=== PATIENT | female | born 1975 | race American Indian/Alaskan Native ===

== ENCOUNTER 2017-03-24 06:31 | Emergency (ER) | payer OTHER ==
[2017-03-24 06:32] VITALS: BMI 27.5
[2017-03-24 06:40] VITALS: TEMP 97.9; O2SAT 99
--- NOTE | 2017-03-24 06:48 | C.PDOC ---
History Of Present Illness 41 y/o F c no PMHx p/w L foot pain since this morning. Patient was running to her car when she heard a pop and now has pain in the L medial heel radiating to the medial foot. She denies any twisting injuries. She states she now can not bear weight on the foot. She denies numbness or fall. Time Seen by Provider: 03/24/17 06:44 Chief Complaint (Nursing): Lower Extremity Problem/Injury Past Medical History Vital Signs: Last Vital Signs Temp 97.9 F 03/24/17 06:36 Pulse 107 H 03/24/17 06:36 Resp 20 03/24/17 06:36 BP 155/111 H 03/24/17 06:36 Pulse Ox 99 03/24/17 06:48 - Medical History PMH: HTN Family History: States: No Known Family Hx - Social History Hx Tobacco Use: No Hx Alcohol Use: No Hx Substance Use: No - Immunization History Hx Tetanus Toxoid Vaccination: No Hx Influenza Vaccination: No Hx Pneumococcal Vaccination: No Review Of Systems Except As Marked, All Systems Reviewed And Found Negative. Constitutional: Negative for: Fever Cardiovascular: Negative for: Chest Pain Physical Exam - Physical Exam Appears: No Acute Distress Skin: No Rash, No Ecchymosis Head: Atraumatic, Normacephalic Eye(s): bilateral: EOMI Oral Mucosa: Moist Respiratory: No Accessory Muscle Use Extremity: Tenderness (L medial heel), Swelling (L foot) Pulses: Left Dorsalis Pedis: Normal Neurological/Psych: Normal Motor (L foot), Normal Sensation (L foot) ED Course And Treatment O2 Sat by Pulse Oximetry: 99 Medical Decision Making Medical Decision Making: Patient declined analgesia. XR foot ordered. No tenderness of ankle or tib/fib. XR no acute fracture or dislocation as read by me. JOSÉ MIGUEL wrapped, crutches provided. Ortho follow up information provided. Disposition - Disposition Referrals: Suman Avery III, MD [Staff Provider] - Disposition: HOME/ ROUTINE Disposition Time: 07:07 Condition: STABLE Prescriptions: Acetaminophen [Tylenol 325mg tab] 2 tab PO Q4H #30 tab Instructions: Foot Sprain (ED) - Clinical Impression Clinical Impression: Foot pain
[2017-03-24 07:21] VITALS: BP 167/102; PULSE 94; RESP 16
--- NOTE | 2017-03-24 16:14 | RAD ---
Left foot three views History: Pain. Comparison: None available. Findings: Moderate hallux valgus deformity. No evidence for acute displaced fracture or dislocation. Impression: Negative acute. If pain persists, consider MRI.
== END 2017-03-24 07:43 | disposition home or self-care (01) ==
LOC: C.ER 06:31
DX: M79.672 Pain in left foot (principal)

== ENCOUNTER 2017-05-15 19:38 | Inpatient (IN) | payer OTHER ==
[2017-05-15 19:38] VITALS: BMI 27.5
[2017-05-15 20:05] LABS: BASO # 0.1 K/uL (0.0-0.2); BASO % 1.2 % (0.0-2.0); EOS # 0.1 K/uL (0.0-0.7); EOS % 0.6 % (0.0-4.0); HEMATOCRIT 38.2 % (34.0-47.0); LYMPH # 2.9 K/uL (1.0-4.3); LYMPH % 29.2 % (20.0-40.0); MEAN CORPUSCULAR HEMOGLOBIN 25.4 pg (27.0-31.0); MEAN CORPUSCULAR HGB CONC 32.8 g/dL (33.0-37.0); MEAN PLATELET VOLUME 8.5 fL (7.2-11.7); MONO % 10.1 % (0.0-10.0); RED CELL DISTRIBUTION WIDTH 13.5 % (11.5-14.5); WHITE BLOOD COUNT 10.1 K/uL (4.8-10.8)
--- NOTE | 2017-05-15 20:05 | C.PDOC ---
History Of Present Illness 41 year old female who presents to the ER with a complaint of sudden onset of palpitations while at work. Patient has a Hx of similar symptoms but has not seen a doctor for it. Denies chest pain or SOB. Chief Complaint (Nursing): Palpitations History Per: Patient History/Exam Limitations: no limitations Onset/Duration Of Symptoms: Hrs, Sudden Onset Current Symptoms Are (Timing): Still Present Associated Symptoms: denies: Chest Pain, Dyspnea, Dizziness, Blurred Vision, Focal Weakness, Headache Quality Of Symptoms: Rapid Heart Rate, Irregular Heart Rate Severity: None Exacerbating Factor(s): Pos: None Recent travel outside of the [place]: No Past Medical History Reviewed: Historical Data, Nursing Documentation, Vital Signs Vital Signs: Last Vital Signs Temp 97.9 F 05/15/17 19:40 Pulse 149 H 05/15/17 20:50 Resp 22 05/15/17 20:50 BP 134/80 05/15/17 20:50 Pulse Ox 100 05/15/17 20:50 - Medical History PMH: HTN Surgical History: No Surg Hx Family History: States: Unknown Family Hx - Social History Hx Tobacco Use: No Hx Alcohol Use: No Hx Substance Use: No - Immunization History Hx Tetanus Toxoid Vaccination: No Hx Influenza Vaccination: No Hx Pneumococcal Vaccination: No Review Of Systems Constitutional: Negative for: Fever, Chills Cardiovascular: Positive for: Palpitations. Negative for: Chest Pain Respiratory: Negative for: Cough, Shortness of Breath Gastrointestinal: Negative for: Nausea, Vomiting Musculoskeletal: Negative for: Neck Pain, Shoulder Pain, Arm Pain Physical Exam - Physical Exam Appears: Non-toxic Skin: Normal Color, Warm, Dry Head: Atraumatic, Normacephalic Oral Mucosa: Moist Neck: Normal, Supple Chest: Symmetrical, No Tenderness Cardiovascular: Rhythm Irregular (Tachycardic) Respiratory: Normal Breath Sounds, No Rales, No Rhonchi, No Wheezing Gastrointestinal/Abdominal: Soft, No Tenderness Extremity: Normal ROM (x4), No Pedal Edema Neurological/Psych: Oriented x3, Normal Speech, Normal Cognition, Other (No focal deficits) ED Course And Treatment - Laboratory Results Result Diagrams: 05/15/17 20:01 05/15/17 20:01 ECG: Interpreted By Me, Viewed By Me ECG Rhythm: Atrial Fibrillation ECG Interpretation: Abnormal Interpretation Of ECG: atrial fibrillation with rapid ventricular response Rate From EC O2 Sat by Pulse Oximetry: 98 (Room air) Pulse Ox Interpretation: Normal - Radiology CXR: Interpreted by Me CXR Interpretation: Yes: No Acute Disease. No: Infiltrates, Cardiomegaly Progress Note: EKG, blood work, and CXR ordered. Cardizem and verapamil administered. Disposition Discussed With : Cesar Pollock Doctor Will See Patient In The: Hospital Counseled Patient/Family Regarding: Diagnosis - Disposition Disposition: HOSPITALIZED Disposition Time: 22:25 Condition: STABLE Forms: [employer] (Lao) - Clinical Impression Clinical Impression: Atrial arrhythmia, Hyperthyroidism - Scribe Statement The provider has reviewed the documentation as recorded by the Scribe Gamaliel Nye All medical record entries made by the Scribe were at my direction and personally dictated by me. I have reviewed the chart and agree that the record accurately reflects my personal performance of the history, physical exam, medical decision making, and the department course for this patient. I have also personally directed, reviewed, and agree with the discharge instructions and disposition.
[2017-05-15 20:13] LABS: CHLORIDE 103 mmol/L (98-107); SODIUM 140 mmol/L (132-148)
[2017-05-15 20:15] LABS: GFR AFRICAN-AMERICAN > 60; POTASSIUM 4.5 mmol/L (3.6-5.2)
[2017-05-15 20:16] LABS: ALB/GLOB RATIO 1.1 (1.0-2.1); ALKALINE PHOSPHATASE 135 U/L (38-126); ALT/SGPT 50 U/L (9-52); AST/SGOT 60 U/L (14-36); BILIRUBIN,TOTAL 1.1 mg/dL (0.2-1.3); BLOOD UREA NITROGEN 12 mg/dL (7-17); CARBON DIOXIDE 25 mmol/L (22-30); GLUCOSE,RANDOM 81 mg/dL (65-105); TOTAL PROTEIN 7.6 g/dL (6.3-8.3)
[2017-05-15 20:17] LABS: CALCIUM 9.9 mg/dl (8.6-10.4)
[2017-05-15 20:33] LABS: T4 > 24.9 ug/dL (5.5-11.0)
[2017-05-15 20:35] LABS: MEAN CELL VOLUME 77.4 fL (81.0-99.0)
[2017-05-15] MEDS ORDERED: Strong Iodine Topical Sol. 5%-10% PO ONE ×2 (21:45→22:00)
[2017-05-15] MEDS ORDERED: Sodium Chloride 0.9% 1,000 ML IV ONE (21:51)
[2017-05-15] MEDS ORDERED: Dexamethasone 4 mg/1 ml IVP STA (21:52)
[2017-05-15] MEDS ORDERED: Propranolol 1 mg/mL Inj IVP ONE (22:15)
[2017-05-15] MEDS ORDERED: Propranolol 1 mg/mL Inj ONE (22:25)
[2017-05-15] MEDS ORDERED: Dexamethasone 4 mg/1 ml ONE (22:25)
--- NOTE | 2017-05-15 22:46 | CP.PCM.CON ---
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 Patient has a Hx of similar symptoms but has not seen a doctor for it. Denies chest pain , dizziness or SOB..Patient currently on Cardizem drip with HR between 130-160 with no c/o palpitations ER labs reveal elevated AST,alk phos,T4,T3 and low TSH.h/o recent weight loss.Denies diaphoresis,loose bowel movemts or heat/cold intolerence. Review of Systems - Review of Systems Systems not reviewed;Unavailable: Unstable Vital Signs - Constitutional Constitutional: Weight Loss. absent: Anorexia, Chills, Fatigue, Fever, Headache , Malaise, Night Sweats - EENT Eyes: absent: Blurred Vision, Change in Vision, Exophthalmos Ears: absent: Decreased Hearing, Dizziness Nose/Mouth/Throat: absent: Nasal Congestion, Hoarsness - Breasts Breasts: absent: Mass, Skin Changes - Cardiovascular Cardiovascular: Palpitations. absent: Chest Pain, Chest Pain at Rest, Chest Pain with Activity, Claudication, Diaphoresis, Dyspnea on Exertion, Edema - Respiratory Respiratory: absent: Cough, Dyspnea - Gastrointestinal Gastrointestinal: absent: Abdominal Pain, Change in Bowel Habits, Change in Stool Character, Nausea, Vomiting - Genitourinary Genitourinary: absent: Change in Urinary Stream, Urinary Frequency - Reproductive: Female Reproductive:Female: Normal Menses - Musculoskeletal Musculoskeletal: absent: Joint Swelling - Integumentary Integumentary: absent: Acne, Alopecia - Neurological Neurological: absent: Dizziness - Endocrine Endocrine: absent: Cold Intolorance, Heat Intolorance, Polydipsia, Polyphagia - Hematologic/Lymphatic Hematologic: absent: Easy Bleeding, Easy Bruising Past Patient History - Infectious Disease Hx of Infectious Diseases: None - Past Medical History & Family History Past Medical History?: Yes Pertinent Family History: mother in her 70's recently diagnosed with thyroid disease and Sx recommended - Past Social History Smoking Status: Never Smoked Chewing Tobacco Use: No Cigar Use: No Occupation: works in [employer] Alcohol: Social Drugs: Denies - CARDIAC Hx Hypertension: Yes - PSYCHIATRIC Hx Substance Use: No - SURGICAL HISTORY Hx Surgeries: No - ANESTHESIA Hx Anesthesia: No Meds Allergies/Adverse Reactions: Allergies Allergy/AdvReac Type Severity Reaction Status Date / Time No Known Allergies Allergy Verified 05/15/17 20:04 - Medications Medications: Current Medications Diltiazem HCl 125 mg/ Sodium (Chloride) 125 mls @ 5 mls/hr IV .Q24H SALAZAR PRN Reason: 5 MG/HR Last Admin: 05/15/17 20:37 Dose: 5 mls/hr Diltiazem HCl 125 mg/ Sodium (Chloride) 125 mls @ 10 mls/hr IV .[id number] SALAZAR; 10 MG/HR PRN Reason: Protocol Last Admin: 05/15/17 21:33 Dose: 10 mls/hr Sodium Chloride (Sodium Chloride 0.9%) 1,000 mls @ 1,000 mls/hr IV .Q1H ONE Stop: 05/15/17 22:50 Physical Exam - Constitutional Appears: Non-toxic, No Acute Distress - Head Exam Head Exam: ATRAUMATIC, NORMAL INSPECTION, NORMOCEPHALIC - Eye Exam Eye Exam: EOMI, Normal appearance, PERRL. absent: Conjunctival injection Pupil Exam: NORMAL ACCOMODATION - ENT Exam ENT Exam: Mucous Membranes Moist, Normal Exam - Neck Exam Neck exam: Positive for: Normal Inspection. Negative for: Lymphadenopathy - Respiratory Exam Respiratory Exam: Clear to Auscultation Bilateral, NORMAL BREATHING PATTERN - Cardiovascular Exam Cardiovascular Exam: Tachycardia, Irregular Rhythm. absent: JVD - GI/Abdominal Exam GI & Abdominal Exam: Normal Bowel Sounds, Soft. absent: Organomegaly, Tenderness - Extremities Exam Extremities exam: Positive for: normal capillary refill, normal inspection. Negative for: calf tenderness, pedal edema, tenderness - Back Exam Back exam: NORMAL INSPECTION - Neurological Exam Neurological exam: Alert, Oriented x3 - Psychiatric Exam Psychiatric exam: Normal Affect - Skin Skin Exam: Normal Color Results - Vital Signs Recent Vital Signs: Last Vital Signs Temp 97.9 F 05/15/17 19:40 Pulse 149 H 05/15/17 20:50 Resp 22 05/15/17 20:50 BP 134/80 05/15/17 20:50 Pulse Ox 98 05/15/17 22:26 - Labs Result Diagrams: 05/15/17 20:01 05/15/17 20:01 Labs: Laboratory Results - last 24 hr 05/15/17 05/15/17 05/15/17 20:01 20:01 20:01 WBC 10.1 RBC 4.93 Hgb 12.5 Hct 38.2 MCV 77.4 L D MCH 25.4 L MCHC 32.8 L RDW 13.5 Plt Count 287 MPV 8.5 Neut % (Auto) 58.9 Lymph % (Auto) 29.2 [place] % (Auto) 10.1 H Eos % (Auto) 0.6 Baso % (Auto) 1.2 Neut # 5.9 Lymph # 2.9 [place] # 1.0 H Eos # 0.1 Baso # 0.1 PT 11.0 INR 1.0 APTT 35 H D-Dimer, Quantitative 236 Sodium 140 Potassium 4.5 Chloride 103 Carbon Dioxide 25 Anion Gap 17 BUN 12 Creatinine 0.5 L Est GFR ( Amer) > 60 Est GFR (Non-Af Amer) > 60 Random Glucose 81 Calcium 9.9 Total Bilirubin 1.1 AST 60 H D ALT 50 Alkaline Phosphatase 135 H D Troponin I 0.0270 Total Protein 7.6 Albumin 3.9 Globulin 3.7 Albumin/Globulin Ratio 1.1 Thyroxine (T4) > 24.9 H Total T3 8.28 H TSH 3rd Generation 05/15/17 21:53 WBC RBC Hgb Hct MCV MCH MCHC RDW Plt Count MPV Neut % (Auto) Lymph % (Auto) [place] % (Auto) Eos % (Auto) Baso % (Auto) Neut # Lymph # [place] # Eos # Baso # PT INR APTT D-Dimer, Quantitative Sodium Potassium Chloride Carbon Dioxide Anion Gap BUN Creatinine Est GFR ( Amer) Est GFR (Non-Af Amer) Random Glucose Calcium Total Bilirubin AST ALT Alkaline Phosphatase Troponin I Total Protein Albumin Globulin Albumin/Globulin Ratio Thyroxine (T4) Total T3 TSH 3rd Generation < 0.02 L - EKG Data EKG Interpreted by: Myself Rate: Tachycardia - Impressions Impression: Atrial fibrillation with ventricular rate of 193/min Assessment & Plan - Assessment and Plan (Free Text) Assessment: 1.Atrial Fibrillation with rapid Ventricular rate on Cardizem drip 2.Thyrotoxicosis -new received PTU,propranalol,potassium iodide and dexamethasone in ER continue propranalol and PTU 3.HTN-f/u BP 4.elevated AST-rpt labs Discussed with PMD
[2017-05-16 06:51] LABS: BASO % 0.5 % (0.0-2.0); HEMATOCRIT 35.3 % (34.0-47.0); LYMPH # 0.8 K/uL (1.0-4.3); MEAN CELL VOLUME 78.1 fL (81.0-99.0); MEAN CORPUSCULAR HEMOGLOBIN 25.7 pg (27.0-31.0); MEAN CORPUSCULAR HGB CONC 32.9 g/dL (33.0-37.0); MONO # 0.1 K/uL (0.0-0.8); MONO % 2.1 % (0.0-10.0); RED CELL DISTRIBUTION WIDTH 13.4 % (11.5-14.5); WHITE BLOOD COUNT 5.5 K/uL (4.8-10.8)
[2017-05-16 07:07] LABS: ALB/GLOB RATIO 1.1 (1.0-2.1); ALKALINE PHOSPHATASE 100 U/L (38-126); ALT/SGPT 48 U/L (9-52); AST/SGOT 43 U/L (14-36); BILIRUBIN,TOTAL 0.8 mg/dL (0.2-1.3); BLOOD UREA NITROGEN 10 mg/dL (7-17); CALCIUM 9.4 mg/dl (8.6-10.4); CARBON DIOXIDE 20 mmol/L (22-30); CHLORIDE 107 mmol/L (98-107); GFR AFRICAN-AMERICAN > 60; GLUCOSE,RANDOM 105 mg/dL (65-105); MAGNESIUM 1.8 mg/dL (1.6-2.3); PHOSPHOROUS 4.3 mg/dL (2.5-4.5); POTASSIUM 4.3 mmol/L (3.6-5.2); SODIUM 136 mmol/L (132-148); TOTAL PROTEIN 5.7 g/dL (6.3-8.3)
[2017-05-16 07:36] LABS: THYROID STIMULATING HORMONE < 0.02 mIU/L (0.46-4.68)
[2017-05-16] MEDS: Pantoprazole 40 mg EC Tab PO SCH (10:07)
[2017-05-16] MEDS: Enoxaparin 30 mg Syringe SC SCH (10:08)
--- NOTE | 2017-05-16 10:15 | RAD ---
HISTORY: palpitation COMPARISON: Chest x-ray performed 02/03/16 TECHNIQUE: Chest, one view. FINDINGS: External cardiac monitoring leads. LUNGS: No focal consolidation. Please note that chest x-ray has limited sensitivity for the detection of pulmonary masses. PLEURA: No significant pleural effusion identified. No definite pneumothorax . CARDIOVASCULAR: The cardiomediastinal silhouette appears within normal limits of size. OSSEOUS STRUCTURES: No acute osseous abnormality identified. VISUALIZED UPPER ABDOMEN: Unremarkable. OTHER FINDINGS: None. IMPRESSION: No focal consolidation, significant pleural effusion, or definite pneumothorax identified.
--- NOTE | 2017-05-16 10:25 | CP.PCM.CON ---
<SAVANNA FELTON - Last Filed: 05/16/17 16:40> History of Present Illness - History of Present Illness History of Present Illness: Savanna Felton, PGY1, Consult Note for Dr. Dotson: CC: palpitations HPI: 41F with PMH HTN, presented for sudden onset of palpitations while at work. Pt c/o mild tremors at times, weight loss of 10 lbs within a few months and increased appetite. Otherwise, denies heat intolerance, cp/pleuritic cp, diaphoresis, diarrhea, abdominal pain, dysuria. Pt has been experiencing palpitations for a few months now, mostly attributing to her HTN. She has not been to her PMD for it. She last visit her PMD Dr Sohail Matthew, 1 year ago and reports normal physical exam and lab work. In ED, pt tachycardic at HR 206, BP 120/80, neg D Dimer, trop negx2, AST 60, ALT 50, low tsh <0.02, fT4 >24.9, fT3 8.28, EKG shows hr 193, afib with rvr; received propranolol 1 mg IVPx1, Verapamil 10 mg IVx1->5mg IVPx2, lugols soln 5mg POx2, PTU 100 mg POx1 and dexamethasone. Pt was started on Cardizem drip, currently weaned off, in NSR Hr 84-100, and maintained on Propranolol 10 mg PO TID and methimazole per Endo. Currently undergoing echocardiogram to r/o structural heart disease. Cardiology consulted for management of afib with RVR. PMH: htn, left plantar fascia full tear (few months ago - required waffle boots) PSH: denies ALl: NKA FH: Mother, dx with hyperthyroidism in her 60's, likely undergoing thyroidectomy soon? DM, HTN, prostate cancer denies thyroid cancer in family SH: Denies tobacco or drug use. Drinks beer/vodka socially every few weeks. PMD: Dr. Sohail Matthew ([place], [place]) Review of Systems - Constitutional Constitutional: Increased Appetite, Weight Loss. absent: Chills, Fever, Lethargy, Night Sweats, Weakness - EENT Eyes: absent: Blurred Vision - Cardiovascular Cardiovascular: Palpitations, Rapid Heart Rate. absent: Chest Pain, Dyspnea, Edema, Lightheadedness, Pedal Edema, Radiating Pain, Syncope - Respiratory Respiratory: absent: Cough, Wheezing - Gastrointestinal Gastrointestinal: absent: Abdominal Pain, Diarrhea, Loose Stools, Vomiting - Genitourinary Genitourinary: absent: Urinary Incontinence, Urinary Frequency - Integumentary Integumentary: absent: Pruritus, Rash - Neurological Neurological: absent: Headaches, Syncope, Weakness - Endocrine Endocrine: Palpitations. absent: Excessive Sweating, Fatigue, Heat Intolorance - Hematologic/Lymphatic Hematologic: absent: Easy Bruising Past Patient History - Infectious Disease Hx of Infectious Diseases: None - Past Medical History & Family History Past Medical History?: Yes - Past Social History Smoking Status: Never Smoked - CARDIAC Hx Cardiac Disorders: Yes Hx Hypertension: Yes - PULMONARY Hx Respiratory Disorders: No - NEUROLOGICAL Hx Neurological Disorder: No - HEENT Hx HEENT Problems: No - RENAL Hx Chronic Kidney Disease: No - ENDOCRINE/METABOLIC Hx Endocrine Disorders: Yes Hx Hyperthyroidism: Yes - HEMATOLOGICAL/ONCOLOGICAL Hx Blood Disorders: No - INTEGUMENTARY Hx Dermatological Problems: No - MUSCULOSKELETAL/RHEUMATOLOGICAL Hx Musculoskeletal Disorders: No - GASTROINTESTINAL Hx Gastrointestinal Disorders: No - GENITOURINARY/GYNECOLOGICAL Hx Genitourinary Disorders: No - PSYCHIATRIC Hx Psychophysiologic Disorder: No Hx Substance Use: No - SURGICAL HISTORY Hx Surgeries: No - ANESTHESIA Hx Anesthesia: No Meds Allergies/Adverse Reactions: Allergies Allergy/AdvReac Type Severity Reaction Status Date / Time No Known Allergies Allergy Verified 05/15/17 20:04 - Medications Medications: Current Medications Enoxaparin Sodium (Lovenox) 30 mg SC DAILY [facility] Diltiazem HCl 125 mg/ Sodium (Chloride) 125 mls @ 10 mls/hr IV .[id number] SALAZAR; 10 MG/HR PRN Reason: Protocol Last Admin: 05/15/17 21:33 Dose: 10 mls/hr Methimazole (Tapazole) 20 mg PO TID [facility] Pantoprazole Sodium (Protonix Ec Tab) 40 mg PO DAILY [facility] Propranolol HCl (Inderal) 10 mg PO TID [facility] Last Admin: 05/16/17 01:27 Dose: 10 mg Physical Exam - Constitutional Appears: No Acute Distress - Head Exam Head Exam: ATRAUMATIC, NORMOCEPHALIC - Eye Exam Eye Exam: PERRL - ENT Exam ENT Exam: Mucous Membranes Moist - Respiratory Exam Respiratory Exam: Clear to Auscultation Bilateral - Cardiovascular Exam Cardiovascular Exam: RRR, +S1, +S2. absent: Systolic Murmur - GI/Abdominal Exam GI & Abdominal Exam: Normal Bowel Sounds, Soft. absent: Distended - Extremities Exam Extremities exam: Negative for: calf tenderness, pedal edema - Neurological Exam Neurological exam: Alert, Oriented x3 - Psychiatric Exam Psychiatric exam: Normal Mood - Skin Skin Exam: Dry, Intact, Warm Results - Vital Signs Recent Vital Signs: Last Vital Signs Temp 97.9 F 05/16/17 08:00 Pulse 95 H 05/16/17 09:30 Resp 21 05/16/17 09:30 BP 127/70 05/16/17 09:26 Pulse Ox 100 05/16/17 09:30 - Labs Result Diagrams: 05/16/17 06:44 05/16/17 06:44 Labs: Laboratory Results - last 24 hr 05/15/17 05/16/17 05/16/17 23:27 06:44 06:44 WBC 5.5 RBC 4.52 Hgb 11.6 Hct 35.3 MCV 78.1 L MCH 25.7 L MCHC 32.9 L RDW 13.4 Plt Count 221 MPV 9.0 Neut % (Auto) 82.4 H Lymph % (Auto) 15.0 L [place] % (Auto) 2.1 Eos % (Auto) 0.0 Baso % (Auto) 0.5 Neut # 4.5 Lymph # 0.8 L [place] # 0.1 Eos # 0.0 Baso # 0.0 Sodium 136 Potassium 4.3 Chloride 107 Carbon Dioxide 20 L Anion Gap 13 BUN 10 Creatinine 0.4 L Est GFR ( Amer) > 60 Est GFR (Non-Af Amer) > 60 Random Glucose 105 Calcium 9.4 Phosphorus 4.3 Magnesium 1.8 Total Bilirubin 0.8 AST 43 H D ALT 48 Alkaline Phosphatase 100 Troponin I < 0.0120 Total Protein 5.7 L Albumin 3.0 L D Globulin 2.8 Albumin/Globulin Ratio 1.1 TSH 3rd Generation < 0.02 L Urine HCG, Qual Negative Assessment & Plan - Assessment and Plan (Free Text) Assessment: 41F with PMH HTN, admitted for afib with RVR 2/2 likely thyrotoxic crisis. Cardiology consulted for management. Off cardizem drip, in NSR, on propranolol and methimazole, echocardiogram reveals normal EF and no structural/valvular heart disease, f/u thyroid US and further treatment of hyperthyroidism ( radioactive iodine vs thyroidectomy?) Plan: Afib with RVR 2/2 likely thyrotoxic crisis: - Pt initially p/w palpitations, weight loss, tremors. Denied cp, sob, diaphoresis, heat intolerance, n/v/d, abdominal pain. - D dimer neg, trop negx2, EKG shows Hr 193/min, afib with RVR - Received Propranolol 1 mg IVPx1, Verapamil 10 mg IVP x1-> 5 mg IVx2, PTU 100g POx1, Lugols soln 5mgx2 in ED - Started on Cardizem drip, currently weaned off, pt converted to NSR at 8 AM today, HR 80-100's. - Currently on Propranolol 10 mg PO TID, and Methimazole 20 mg PO tid, please use cardizem drip if required. - Echo cardiogram 05/16 shows normal EF and no structural/vavular disease. - Mild transminities. cont to monitor. - f/u thyroid US Discussed with Dr. Dotson. Savanna Felton, PGY1 - Date & Time Date: 05/16/17 Time: 13:00 <Will Dotson - Last Filed: 05/16/17 20:41> Meds - Medications Medications: Current Medications Enoxaparin Sodium (Lovenox) 30 mg SC DAILY [facility] Last Admin: 05/16/17 10:08 Dose: 30 mg Diltiazem HCl 125 mg/ Sodium (Chloride) 125 mls @ 10 mls/hr IV .[id number] SALAZAR; 10 MG/HR PRN Reason: Protocol Last Admin: 05/16/17 10:09 Dose: Not Given Methimazole (Tapazole) 20 mg PO TID [facility] Last Admin: 05/16/17 17:58 Dose: 20 mg Pantoprazole Sodium (Protonix Ec Tab) 40 mg PO DAILY [facility] Last Admin: 05/16/17 10:07 Dose: 40 mg Pneumococcal Polyvalent Vaccine (Pneumovax 23 Vaccine) 0.5 ml IM .ONCE ONE Stop: 05/17/17 15:39 Propranolol HCl (Inderal) 10 mg PO TID [facility] Last Admin: 05/16/17 17:58 Dose: 10 mg Results - Vital Signs Recent Vital Signs: Last Vital Signs Temp 98.0 F 05/16/17 16:00 Pulse 102 H 05/16/17 19:24 Resp 26 H 05/16/17 19:24 BP 117/69 05/16/17 19:24 Pulse Ox 99 05/16/17 19:24 - Labs Result Diagrams: 05/16/17 06:44 05/16/17 06:44 Labs: Laboratory Results - last 24 hr 05/15/17 05/16/17 05/16/17 23:27 06:44 06:44 WBC 5.5 RBC 4.52 Hgb 11.6 Hct 35.3 MCV 78.1 L MCH 25.7 L MCHC 32.9 L RDW 13.4 Plt Count 221 MPV 9.0 Neut % (Auto) 82.4 H Lymph % (Auto) 15.0 L [place] % (Auto) 2.1 Eos % (Auto) 0.0 Baso % (Auto) 0.5 Neut # 4.5 Lymph # 0.8 L [place] # 0.1 Eos # 0.0 Baso # 0.0 Sodium 136 Potassium 4.3 Chloride 107 Carbon Dioxide 20 L Anion Gap 13 BUN 10 Creatinine 0.4 L Est GFR ( Amer) > 60 Est GFR (Non-Af Amer) > 60 Random Glucose 105 Calcium 9.4 Phosphorus 4.3 Magnesium 1.8 Total Bilirubin 0.8 AST 43 H D ALT 48 Alkaline Phosphatase 100 Troponin I < 0.0120 Total Protein 5.7 L Albumin 3.0 L D Globulin 2.8 Albumin/Globulin Ratio 1.1 TSH 3rd Generation < 0.02 L Urine HCG, Qual Negative Assessment & Plan - Assessment and Plan (Free Text) Plan: Patient seen and evaluated D/W patient and family at bedside Plan of care as above
--- NOTE | 2017-05-16 11:40 | CARD ---
APPROVED REPORT EKG Measurement Heart [id number] <Conclusion> Atrial fibrillation with rapid ventricular response ST & T wave abnormality, consider inferior ischemia Abnormal ECG
--- NOTE | 2017-05-16 12:07 | CARD ---
APPROVED REPORT EXAM: Two-dimensional and M-mode echocardiogram with Doppler and color Doppler. Other Information Quality : GoodRhythm : NSR INDICATION Atrial Fibrillation Palpitations RISK FACTORS Hypertension 2D DIMENSIONS IVSd0.9 (0.7-1.1cm)LVDd4.1 (3.9-5.9cm) PWd1.0 (0.7-1.1cm)LVDs2.2 (2.5-4.0cm) FS (%) 46.8 %LVEF (%)78.6 (>50%) M-Mode DIMENSIONS RVDd2.47 (2.1-3.2cm)Left Atrium (MM)3.12 (2.5-4.0cm) IVSd0.65 (0.7-1.1cm)Aortic Root3.45 (2.2-3.7cm) LVDd4.78 (4.0-5.6cm)Aortic Cusp Exc.2.41 (1.5-2.0cm) PWd0.72 (0.7-1.1cm)FS (%) 50 % LVDs2.41 (2.0-3.8cm)LVEF (%)81 (>50%) Mitral Valve MV E Jpkhricu08.7cm/sMV A Oumokgzi42.3cm/sE/A ratio1.1 TDI E/Lateral E'0.0E/Medial E'0.0 Tricuspid Valve TR Peak [id number]/sTR Peak Gr.[id number] LEFT VENTRICLE The left ventricle is normal size. There is normal left ventricular wall thickness. Left ventricle systolic function is normal. The Ejection Fraction is 65-70%. There is normal LV segmental wall motion. The left ventricular diastolic function is normal. There is no ventricular septal defect visualized. RIGHT VENTRICLE The right ventricle is normal size. The right ventricular systolic function is normal. ATRIA The left atrium size is normal. The right atrium size is normal. The atrial septum is aneurysmal. With a dropout of the intra-atrial septum however no Doppler evidence of atrial septal defect AORTIC VALVE The aortic valve is tri-cuspid. The aortic valve is normal in structure. No aortic regurgitation is present. There is no aortic valvular stenosis. MITRAL VALVE The mitral valve is normal in structure. There is no evidence of mitral valve prolapse. There is no mitral valve regurgitation noted. TRICUSPID VALVE The tricuspid valve is normal in structure. There is trace tricuspid regurgitation. Right ventricular systolic pressure is estimated at 30-40 mmHg. There is mild pulmonary hypertension. PULMONIC VALVE The pulmonary valve is normal in structure. There is trace pulmonic valvular regurgitation. GREAT VESSELS The aortic root is normal in size. The IVC is normal in size and collapses >50% with inspiration. PERICARDIAL EFFUSION There is no pericardial effusion. <Conclusion> Left ventricle systolic function is normal. The Ejection Fraction is 65-70%. The left ventricular diastolic function is normal. The atrial septum is aneurysmal. With a dropout of the intra-atrial septum however no Doppler evidence of atrial septal defect There is mild pulmonary hypertension.
[2017-05-16] MEDS ORDERED: Pneumococcal 23-Valent Vaccine IM ONE (15:03)
--- NOTE | 2017-05-16 15:41 | CP.CCUPN ---
<Malina Rodrigues - Last Filed: 05/16/17 15:39> CCU Subjective - Physician Review Subjective (Free Text): Patient was seen and examined at bedside. Patient is feeling better, however, feels as though her heart rate is starting to increase again. Patient no longer feels dizzy, she only feels dizzy and short of breath when she has palpitations. Patient denies having chest pain, abdominal pain, vision changes, nausea, vomiting, headaches, and fevers. 05/16/17 15:39 CCU Objective - Vital Signs / Intake & Output Vital Signs (Last 4 hours): Vital Signs Temp Pulse Resp BP Pulse Ox 05/16/17 15:30 107 H 26 H 100 05/16/17 15:25 105 H 14 118/71 100 05/16/17 15:20 108 H 35 H 97 05/16/17 15:10 105 H 26 H 100 05/16/17 15:00 101 H 27 H 100 05/16/17 14:50 102 H 26 H 100 05/16/17 14:40 105 H 21 100 05/16/17 14:30 100 H 25 H 100 05/16/17 14:25 102 H 22 129/95 H 100 05/16/17 14:20 102 H 28 H 100 05/16/17 14:10 105 H 24 100 05/16/17 14:00 106 H 29 H 100 05/16/17 13:50 102 H 22 100 05/16/17 13:40 100 H 21 100 05/16/17 13:30 107 H 29 H 100 05/16/17 13:25 98 H 20 118/72 05/16/17 13:20 102 H 25 H 99 05/16/17 13:10 94 H 21 100 05/16/17 13:00 92 H 24 100 05/16/17 12:50 108 H 13 96 05/16/17 12:40 97 H 20 100 05/16/17 12:30 95 H 20 100 05/16/17 12:25 94 H 24 108/66 100 05/16/17 12:24 95 H 24 100 05/16/17 12:20 98 H 15 100 05/16/17 12:10 94 H 26 H 100 05/16/17 12:00 98.0 F 89 23 100 05/16/17 11:50 93 H 16 95 05/16/17 11:40 103 H 12 100 Intake and Output (Last 8hrs): Intake & Output 05/16/17 05/16/17 05/16/17 06:59 14:59 22:59 Intake Total 685 535 Output Total 775 200 Balance 685 -240 -200 Intake: Intake, IV Amount 685 535 Right Hand 85 35 Right Hand Y Port 600 500 Output: Urine 775 200 Urine, Voided 775 200 Other: # Voids Urine, Voided 1 0 1 - Physical Exam Head: Positive for: Atraumatic, Normocephalic Pupils: Positive for: PERRL Extroacular Muscles: Positive for: EOMI Conjunctiva: Positive for: Normal Mouth: Positive for: Moist Mucous Membranes Neck: Positive for: Normal Range of Motion, Other (enlarged and nodular thyroid. ) Respiratory/Chest: Positive for: Clear to Auscultation, Good Air Exchange. Negative for: Wheezes, Rales, Rhonchi Cardiovascular: Positive for: Normal S1, S2, Tachycardic Abdomen: Positive for: Normal Bowel Sounds. Negative for: Tenderness, Distention Upper Extremity: Positive for: Normal Inspection. Negative for: Edema Lower Extremity: Positive for: Normal Inspection. Negative for: Edema Skin: Positive for: Warm, Dry, Normal Color Psychiatric: Positive for: Alert, Oriented x 3, Normal Insight, Normal Concentration - Medications Active Medications: Active Medications Generic Name Dose Route Start Last Admin Trade Name Freq PRN Reason Stop Dose Admin Enoxaparin Sodium 30 mg 05/16/17 10:00 05/16/17 10:08 Lovenox SC 30 mg DAILY SALAZAR Administration Diltiazem HCl 125 mg/ Sodium 125 mls @ 10 mls/hr 05/15/17 21:30 05/16/17 10: 09 Chloride IV Not Given .[id number] SALAZAR Protocol 10 MG/HR Methimazole 20 mg 05/16/17 10:00 05/16/17 13:33 Tapazole PO 20 mg TID SALAZAR Administration Pantoprazole Sodium 40 mg 05/16/17 10:00 05/16/17 10:07 Protonix Ec Tab PO 40 mg DAILY SALAZAR Administration Pneumococcal Polyvalent Vaccine 0.5 ml 05/17/17 15:38 Pneumovax 23 Vaccine IM 05/17/17 15:39 .ONCE ONE Propranolol HCl 10 mg 05/16/17 01:15 05/16/17 13:33 Inderal PO 10 mg TID SALAZAR Administration - Patient Studies Lab Studies: Lab Studies 05/16/17 05/16/17 05/15/17 Range/Units 06:44 06:44 23:27 WBC 5.5 (4.8-10.8) K/uL RBC 4.52 (3.80-5.20) Mil/uL Hgb 11.6 (11.0-16.0) g/dL Hct 35.3 (34.0-47.0) % MCV 78.1 L (81.0-99.0) fL MCH 25.7 L (27.0-31.0) pg MCHC 32.9 L (33.0-37.0) g/dL RDW 13.4 (11.5-14.5) % Plt Count 221 (130-400) K/uL MPV 9.0 (7.2-11.7) fL Neut % (Auto) 82.4 H (50.0-75.0) % Lymph % (Auto) 15.0 L (20.0-40.0) % [place] % (Auto) 2.1 (0.0-10.0) % Eos % (Auto) 0.0 (0.0-4.0) % Baso % (Auto) 0.5 (0.0-2.0) % Neut # 4.5 (1.8-7.0) K/uL Lymph # 0.8 L (1.0-4.3) K/uL [place] # 0.1 (0.0-0.8) K/uL Eos # 0.0 (0.0-0.7) K/uL Baso # 0.0 (0.0-0.2) K/uL Sodium 136 (132-148) mmol/L Potassium 4.3 (3.6-5.2) mmol/L Chloride 107 (98-107) mmol/L Carbon Dioxide 20 L (22-30) mmol/L Anion Gap 13 (10-20) BUN 10 (7-17) mg/dL Creatinine 0.4 L (0.7-1.2) MG/DL Est GFR ( Amer) > 60 Est GFR (Non-Af Amer) > 60 Random Glucose 105 (65-105) mg/dL Calcium 9.4 (8.6-10.4) mg/dl Phosphorus 4.3 (2.5-4.5) mg/dL Magnesium 1.8 (1.6-2.3) mg/dL Total Bilirubin 0.8 (0.2-1.3) mg/dL AST 43 H D (14-36) U/L ALT 48 (9-52) U/L Alkaline Phosphatase 100 (38-126) U/L Troponin I < 0.0120 (0.00-0.120) ng/mL Total Protein 5.7 L (6.3-8.3) g/dL Albumin 3.0 L D (3.5-5.0) g/dL Globulin 2.8 (2.2-3.9) gm/dL Albumin/Globulin Ratio 1.1 (1.0-2.1) TSH 3rd Generation < 0.02 L (0.46-4.68) mIU/L Urine HCG, Qual Negative (NEGATIVE) Laboratory Results - last 24 hr 05/15/17 05/16/17 05/16/17 23:27 06:44 06:44 WBC 5.5 RBC 4.52 Hgb 11.6 Hct 35.3 MCV 78.1 L MCH 25.7 L MCHC 32.9 L RDW 13.4 Plt Count 221 MPV 9.0 Neut % (Auto) 82.4 H Lymph % (Auto) 15.0 L [place] % (Auto) 2.1 Eos % (Auto) 0.0 Baso % (Auto) 0.5 Neut # 4.5 Lymph # 0.8 L [place] # 0.1 Eos # 0.0 Baso # 0.0 Sodium 136 Potassium 4.3 Chloride 107 Carbon Dioxide 20 L Anion Gap 13 BUN 10 Creatinine 0.4 L Est GFR ( Amer) > 60 Est GFR (Non-Af Amer) > 60 Random Glucose 105 Calcium 9.4 Phosphorus 4.3 Magnesium 1.8 Total Bilirubin 0.8 AST 43 H D ALT 48 Alkaline Phosphatase 100 Troponin I < 0.0120 Total Protein 5.7 L Albumin 3.0 L D Globulin 2.8 Albumin/Globulin Ratio 1.1 TSH 3rd Generation < 0.02 L Urine HCG, Qual Negative EKG/Cardiology Studies: Cardiology / EKG Studies 05/16/17 08:00 ELECTROCARDIOGRAM Stat Comment: Mode Of Transportation: PORTABLE Reason For Exam: atrial fibrillation Review of Systems - Constitutional Constitutional: absent: Fever - EENT Eyes: absent: Change in Vision, Other Visual Disturbances Ears: absent: Dizziness - Cardiovascular Cardiovascular: Palpitations. absent: Chest Pain, Dyspnea, Lightheadedness - Respiratory Respiratory: absent: Cough, Dyspnea - Gastrointestinal Gastrointestinal: absent: Abdominal Pain, Constipation, Diarrhea, Nausea, Vomiting - Neurological Neurological: absent: Dizziness, Headaches - Endocrine Endocrine: Palpitations Critical Care Progress Note - Nutrition Nutrition: Nutrition Category Date Time Status Heart Healthy Diet [DIET] Diets 05/16/17 Lunch Active Assessment/Plan - Assessment and Plan (Free Text) Assessment: 41 year old female with history of HTN, presents to ED with sudden onset of palpitations. Patient has had these symptoms in past but has not seen a doctor for it. In the ER patient was found to have A-fib with rvr, low TSH, elevated T3 , T4, and AST. Patient was admitted to ICU for A-fib w/rvr and thyrotoxicosis. Neuro: alert, orientedx3 Pulm: no acute issues CV: Afib w/RVR - Continued Propanolol, Discontinued Cardizem drip - Caridology consulted- Dr Dotson, help appreciated - Hx of HTN: continue Endo: Thyrotoxicosis - Continue propanolol, methimazole - Hyperthyroidism-->TSH:<0.02 T3:8.28 T4: >24.9 - Thyroid U/S: f/u - Endocrinology consulted: Dr. Mancilla, help appreciated GI: elevated AST - F/U repeat labs - AST 60 at admission, repeat 43 Heme: no acute issues Renal: no acute issues ID: no acute issues Prophylaxis: - DVT: Lovenox - GI: Protonix <Hayes Quiles - Last Filed: 05/16/17 17:23> CCU Objective - Vital Signs / Intake & Output Vital Signs (Last 4 hours): Vital Signs Temp Pulse Resp BP Pulse Ox 05/16/17 16:30 110 H 26 H 100 05/16/17 16:25 107 H 28 H 120/72 99 05/16/17 16:20 108 H 23 100 05/16/17 16:10 107 H 16 100 05/16/17 16:00 98.0 F 107 H 29 H 100 05/16/17 15:50 106 H 24 99 05/16/17 15:40 104 H 28 H 100 05/16/17 15:30 107 H 26 H 100 05/16/17 15:25 105 H 14 118/71 100 05/16/17 15:20 108 H 35 H 97 05/16/17 15:10 105 H 26 H 100 05/16/17 15:00 101 H 27 H 100 05/16/17 14:50 102 H 26 H 100 05/16/17 14:40 105 H 21 100 05/16/17 14:30 100 H 25 H 100 05/16/17 14:25 102 H 22 129/95 H 100 05/16/17 14:20 102 H 28 H 100 05/16/17 14:10 105 H 24 100 05/16/17 14:00 106 H 29 H 100 05/16/17 13:50 102 H 22 100 05/16/17 13:40 100 H 21 100 05/16/17 13:30 107 H 29 H 100 05/16/17 13:25 98 H 20 118/72 Intake and Output (Last 8hrs): Intake & Output 05/16/17 05/16/17 05/16/17 06:59 14:59 22:59 Intake Total 685 535 Output Total 775 450 Balance 685 -240 -450 Intake: Intake, IV Amount 685 535 Right Hand 85 35 Right Hand Y Port 600 500 Output: Urine 775 450 Urine, Voided 775 450 Other: # Voids Urine, Voided 1 0 1 - Medications Active Medications: Active Medications Generic Name Dose Route Start Last Admin Trade Name Freq PRN Reason Stop Dose Admin Enoxaparin Sodium 30 mg 05/16/17 10:00 05/16/17 10:08 Lovenox SC 30 mg DAILY SALAZAR Administration Diltiazem HCl 125 mg/ Sodium 125 mls @ 10 mls/hr 05/15/17 21:30 05/16/17 10: 09 Chloride IV Not Given .[id number] SALAZAR Protocol 10 MG/HR Methimazole 20 mg 05/16/17 10:00 05/16/17 13:33 Tapazole PO 20 mg TID SALAZAR Administration Pantoprazole Sodium 40 mg 05/16/17 10:00 05/16/17 10:07 Protonix Ec Tab PO 40 mg DAILY SALAZAR Administration Pneumococcal Polyvalent Vaccine 0.5 ml 08/23/17 15:38 Pneumovax 23 Vaccine IM 05/17/17 15:39 .ONCE ONE Propranolol HCl 10 mg 05/16/17 01:15 05/16/17 13:33 Inderal PO 10 mg TID SALAZAR Administration - Patient Studies Lab Studies: Lab Studies 05/16/17 05/16/17 05/15/17 Range/Units 06:44 06:44 23:27 WBC 5.5 (4.8-10.8) K/uL RBC 4.52 (3.80-5.20) Mil/uL Hgb 11.6 (11.0-16.0) g/dL Hct 35.3 (34.0-47.0) % MCV 78.1 L (81.0-99.0) fL MCH 25.7 L (27.0-31.0) pg MCHC 32.9 L (33.0-37.0) g/dL RDW 13.4 (11.5-14.5) % Plt Count 221 (130-400) K/uL MPV 9.0 (7.2-11.7) fL Neut % (Auto) 82.4 H (50.0-75.0) % Lymph % (Auto) 15.0 L (20.0-40.0) % [place] % (Auto) 2.1 (0.0-10.0) % Eos % (Auto) 0.0 (0.0-4.0) % Baso % (Auto) 0.5 (0.0-2.0) % Neut # 4.5 (1.8-7.0) K/uL Lymph # 0.8 L (1.0-4.3) K/uL [place] # 0.1 (0.0-0.8) K/uL Eos # 0.0 (0.0-0.7) K/uL Baso # 0.0 (0.0-0.2) K/uL Sodium 136 (132-148) mmol/L Potassium 4.3 (3.6-5.2) mmol/L Chloride 107 (98-107) mmol/L Carbon Dioxide 20 L (22-30) mmol/L Anion Gap 13 (10-20) BUN 10 (7-17) mg/dL Creatinine 0.4 L (0.7-1.2) MG/DL Est GFR ( Amer) > 60 Est GFR (Non-Af Amer) > 60 Random Glucose 105 (65-105) mg/dL Calcium 9.4 (8.6-10.4) mg/dl Phosphorus 4.3 (2.5-4.5) mg/dL Magnesium 1.8 (1.6-2.3) mg/dL Total Bilirubin 0.8 (0.2-1.3) mg/dL AST 43 H D (14-36) U/L ALT 48 (9-52) U/L Alkaline Phosphatase 100 (38-126) U/L Troponin I < 0.0120 (0.00-0.120) ng/mL Total Protein 5.7 L (6.3-8.3) g/dL Albumin 3.0 L D (3.5-5.0) g/dL Globulin 2.8 (2.2-3.9) gm/dL Albumin/Globulin Ratio 1.1 (1.0-2.1) TSH 3rd Generation < 0.02 L (0.46-4.68) mIU/L Urine HCG, Qual Negative (NEGATIVE) Laboratory Results - last 24 hr 05/15/17 05/16/17 05/16/17 23:27 06:44 06:44 WBC 5.5 RBC 4.52 Hgb 11.6 Hct 35.3 MCV 78.1 L MCH 25.7 L MCHC 32.9 L RDW 13.4 Plt Count 221 MPV 9.0 Neut % (Auto) 82.4 H Lymph % (Auto) 15.0 L [place] % (Auto) 2.1 Eos % (Auto) 0.0 Baso % (Auto) 0.5 Neut # 4.5 Lymph # 0.8 L [place] # 0.1 Eos # 0.0 Baso # 0.0 Sodium 136 Potassium 4.3 Chloride 107 Carbon Dioxide 20 L Anion Gap 13 BUN 10 Creatinine 0.4 L Est GFR ( Amer) > 60 Est GFR (Non-Af Amer) > 60 Random Glucose 105 Calcium 9.4 Phosphorus 4.3 Magnesium 1.8 Total Bilirubin 0.8 AST 43 H D ALT 48 Alkaline Phosphatase 100 Troponin I < 0.0120 Total Protein 5.7 L Albumin 3.0 L D Globulin 2.8 Albumin/Globulin Ratio 1.1 TSH 3rd Generation < 0.02 L Urine HCG, Qual Negative EKG/Cardiology Studies: Cardiology / EKG Studies 05/16/17 08:00 ELECTROCARDIOGRAM Stat Comment: Mode Of Transportation: PORTABLE Reason For Exam: atrial fibrillation Critical Care Progress Note - Nutrition Nutrition: Nutrition Category Date Time Status Heart Healthy Diet [DIET] Diets 05/16/17 Lunch Active Attending/Attestation - Attestation I have personally seen and examined this patient.: Yes I have fully participated in the care of the patient.: Yes I have reviewed all pertinent clinical information: Yes Notes (Text): 05/16/17 17:22 Patient seen and examined in the intensive care unit. Case discussed with house staff in the morning rounds. Admitted with atrial fibrillation with rapid ventricular response secondary to thyrotoxicosis Off Cardizem drip in normal sinus rhythm Continue propranolol Continue methimazole Ultrasound of thyroid gland showed 2 vascular nodules Consider biopsy Seen by cardiology endocrinology consult
--- NOTE | 2017-05-16 16:10 | US ---
HISTORY: thyrotoxicosis TECHNIQUE: Sonographic evaluation of the thyroid gland. COMPARISON: None available. FINDINGS: RIGHT LOBE: Measures 6.4 x 2.3 x 2.6 cm. Diffusely heterogeneous echotexture is appreciated throughout may reflect innumerable tiny nodular foci but is nonspecific. A midpole nodule is identified measuring 2.0 x 1.2 x 1.8 cm which is isoechoic with the an echo poor peripheral halo. Overall increased blood flow is appreciated on color Doppler imaging of the right thyroid lobe. LEFT LOBE: Measures 5.7 x 2.4 x 2.7 cm. Diffusely heterogeneous echotexture is appreciated throughout may reflect innumerable tiny nodular foci but is nonspecific. An echogenic nodule identified at the lower pole left lobe with echo poor peripheral halo measuring 1.3 x 1.2 x 1.5 cm. Overall increased blood flow is appreciated on color Doppler imaging of the left thyroid lobe. ISTHMUS: Measures 0.2 cm. Inhomogeneous echotexture is identified throughout the isthmus without definitive nodule demonstrated. OTHER FINDINGS: None . IMPRESSION: A [id number] enlarged thyroid gland is appreciated more so on the right than left lobes with bilateral solitary nodules identified. Dominant nodule is at the midpole right lobe. Diffusely heterogeneous and hyperemic parenchyma is appreciated throughout the gland. Further clinical correlation is advised. Consider possible tissue diagnosis at right lobe lesion and potentially at the lower lobe left lobe nodule.
--- NOTE | 2017-05-16 20:38 | CP.PCM.HP ---
History of Present Illness - History of Present Illness History of Present Illness: c/o palpitations HPI: 41yrs old with h/o HTN admitted with palpitations. pt has c/o recurrent palpitations going on for 3yrs on and off and episodic. no h/o chest pain and nausea or vomiting in the past. She was working yesterday and later evening suddenly she felt palpitation and went to ED to check bp and found to have HR 200/mt and admitted to ER. no other symptoms. She received multiple medications and placed on cardizem drip to control HR and admtted to ICU. work up noted to have thyrotoxicosis. Present on Admission - Present on Admission Any Indicators Present on Admission: No History of DVT/PE: No History of Uncontrolled Diabetes: No Urinary Catheter: No Decubitus Ulcer Present: No - Notes: Notes:: h/o HTN Review of Systems - Review of Systems Systems not reviewed;Unavailable: Acuity of Condition All systems: reviewed and no additional remarkable complaints except Review of Systems: no headache no chest pain no visual symptoms recent h/o left leg sprain on medication for HTN Past Patient History - Infectious Disease Hx of Infectious Diseases: None - Past Medical History & Family History Past Medical History?: Yes Pertinent Family History: mother had hypothyroidism - Past Social History Smoking Status: Never Smoked - CARDIAC Hx Cardiac Disorders: Yes Hx Hypertension: Yes - PULMONARY Hx Respiratory Disorders: No - NEUROLOGICAL Hx Neurological Disorder: No - HEENT Hx HEENT Problems: No - RENAL Hx Chronic Kidney Disease: No - ENDOCRINE/METABOLIC Hx Endocrine Disorders: Yes Hx Hyperthyroidism: Yes - HEMATOLOGICAL/ONCOLOGICAL Hx Blood Disorders: No - INTEGUMENTARY Hx Dermatological Problems: No - MUSCULOSKELETAL/RHEUMATOLOGICAL Hx Musculoskeletal Disorders: No - GASTROINTESTINAL Hx Gastrointestinal Disorders: No - GENITOURINARY/GYNECOLOGICAL Hx Genitourinary Disorders: No - PSYCHIATRIC Hx Psychophysiologic Disorder: No Hx Substance Use: No - SURGICAL HISTORY Hx Surgeries: No - ANESTHESIA Hx Anesthesia: No Meds Allergies/Adverse Reactions: Allergies Allergy/AdvReac Type Severity Reaction Status Date / Time No Known Allergies Allergy Verified 05/15/17 20:04 Physical Exam - Constitutional Appears: Well - Head Exam Head Exam: ATRAUMATIC - Eye Exam Eye Exam: Normal appearance - Respiratory Exam Respiratory Exam: NORMAL BREATHING PATTERN - Cardiovascular Exam Cardiovascular Exam: Tachycardia, REGULAR RHYTHM - Additional Findings Additional findings: chest good air entry regular hs abd soft and no edema Results - Vital Signs Recent Vital Signs: Last Vital Signs Temp 98.0 F 05/16/17 16:00 Pulse 102 H 05/16/17 19:24 Resp 26 H 05/16/17 19:24 BP 117/69 05/16/17 19:24 Pulse Ox 99 05/16/17 19:24 - Labs Result Diagrams: 05/16/17 06:44 05/16/17 06:44 Labs: Laboratory Results - last 24 hr 05/15/17 05/16/17 05/16/17 23:27 06:44 06:44 WBC 5.5 RBC 4.52 Hgb 11.6 Hct 35.3 MCV 78.1 L MCH 25.7 L MCHC 32.9 L RDW 13.4 Plt Count 221 MPV 9.0 Neut % (Auto) 82.4 H Lymph % (Auto) 15.0 L [place] % (Auto) 2.1 Eos % (Auto) 0.0 Baso % (Auto) 0.5 Neut # 4.5 Lymph # 0.8 L [place] # 0.1 Eos # 0.0 Baso # 0.0 Sodium 136 Potassium 4.3 Chloride 107 Carbon Dioxide 20 L Anion Gap 13 BUN 10 Creatinine 0.4 L Est GFR ( Amer) > 60 Est GFR (Non-Af Amer) > 60 Random Glucose 105 Calcium 9.4 Phosphorus 4.3 Magnesium 1.8 Total Bilirubin 0.8 AST 43 H D ALT 48 Alkaline Phosphatase 100 Troponin I < 0.0120 Total Protein 5.7 L Albumin 3.0 L D Globulin 2.8 Albumin/Globulin Ratio 1.1 TSH 3rd Generation < 0.02 L Urine HCG, Qual Negative Assessment & Plan (1) Thyrotoxic heart disease Assessment and Plan: pt admitted with thyrotoxicosis intermittant atrial fib sinus tachycardia multinodular goiter sono gram thyroid gland showing hyperemia and nodular disease echo mild reduction of EF noted HR controlled well now sinus increase the inderal 20mg tid on tapazole now pending endo consult possible d/c plan in am ambulate will f/u Status: Acute (2) Toxic thyroid nodule Status: Acute
[2017-05-17 06:11] LABS: BASO # 0.1 K/uL (0.0-0.2); BASO % 0.9 % (0.0-2.0); EOS % 0.3 % (0.0-4.0); HEMATOCRIT 30.8 % (34.0-47.0); LYMPH # 2.2 K/uL (1.0-4.3); LYMPH % 32.3 % (20.0-40.0); MEAN CELL VOLUME 78.4 fL (81.0-99.0); MEAN CORPUSCULAR HEMOGLOBIN 25.8 pg (27.0-31.0); MEAN CORPUSCULAR HGB CONC 32.9 g/dL (33.0-37.0); MEAN PLATELET VOLUME 8.8 fL (7.2-11.7); MONO # 0.7 K/uL (0.0-0.8); MONO % 10.4 % (0.0-10.0); NRBC % 0.1 % (0.0-2.0); RED CELL DISTRIBUTION WIDTH 13.4 % (11.5-14.5); WHITE BLOOD COUNT 6.7 K/uL (4.8-10.8)
[2017-05-17 06:25] LABS: CHLORIDE 110 mmol/L (98-107); POTASSIUM 3.5 mmol/L (3.6-5.2); SODIUM 142 mmol/L (132-148)
[2017-05-17 06:27] LABS: ALB/GLOB RATIO 0.9 (1.0-2.1); ALKALINE PHOSPHATASE 93 U/L (38-126); AST/SGOT 31 U/L (14-36); BILIRUBIN,TOTAL 0.5 mg/dL (0.2-1.3); CARBON DIOXIDE 21 mmol/L (22-30); GFR AFRICAN-AMERICAN > 60; TOTAL PROTEIN 5.4 g/dL (6.3-8.3)
[2017-05-17 06:28] LABS: ALT/SGPT 44 U/L (9-52); BLOOD UREA NITROGEN 20 mg/dL (7-17); CALCIUM 8.6 mg/dl (8.6-10.4); GLUCOSE,RANDOM 100 mg/dL (65-105); PHOSPHOROUS 3.5 mg/dL (2.5-4.5)
[2017-05-17 06:44] LABS: T4 19.2 ug/dL (5.5-11.0)
[2017-05-17 06:45] LABS: FT3 9.33 pg/mL (2.77-5.27)
[2017-05-17 06:58] LABS: THYROID STIMULATING HORMONE < 0.02 mIU/L (0.46-4.68)
[2017-05-17] MEDS ORDERED: Potassium Chloride 20 mEq ER Tab PO ONE (09:13)
--- NOTE | 2017-05-17 09:16 | CP.PCM.PN ---
<BRANDIE FELTON - Last Filed: 05/17/17 12:42> Subjective - Date & Time of Evaluation Date of Evaluation: 05/17/17 Time of Evaluation: 09:14 - Subjective Subjective: Brandie Felton, PGY1, Progress Note for Dr. Dotson: Pt seen and examined at bedside. No acute events overnight. Pt c/o mild palpitations and heat intolerance. Denies cp, diaphoresis, n/v/d, abdominal pain. Objective - Vital Signs/Intake and Output Vital Signs (last 24 hours): Temp Pulse Resp BP Pulse Ox 98.2 F 104 H 16 128/76 98 05/17/17 04:00 05/17/17 06:25 05/17/17 06:25 05/17/17 06:25 05/17/17 06:25 - Medications Medications: Current Medications Enoxaparin Sodium (Lovenox) 30 mg SC DAILY [facility] [place] Last Admin: 05/16/17 10:08 Dose: 30 mg Methimazole (Tapazole) 20 mg PO TID [facility] [place] Last Admin: 05/16/17 17:58 Dose: 20 mg Pantoprazole Sodium (Protonix Ec Tab) 40 mg PO DAILY [facility] [place] Last Admin: 05/16/17 10:07 Dose: 40 mg Pneumococcal Polyvalent Vaccine (Pneumovax 23 Vaccine) 0.5 ml IM .ONCE ONE Stop: 05/17/17 15:39 Potassium Chloride (K-Dur 20 Meq Er Tab) 40 meq PO ONCE ONE Stop: 05/17/17 09:14 Propranolol HCl (Inderal) 20 mg PO TID [facility] [place] - Labs Labs: 05/17/17 05:59 05/17/17 05:59 PT 11.0 SECONDS (9.7-12.2) 05/15/17 20:01 INR 1.0 05/15/17 20:01 APTT 35 SECONDS (21-34) H 05/15/17 20:01 - Constitutional Appears: No Acute Distress - Head Exam Head Exam: ATRAUMATIC, NORMOCEPHALIC - Eye Exam Eye Exam: PERRL - ENT Exam ENT Exam: Mucous Membranes Moist - Respiratory Exam Respiratory Exam: Clear to Ausculation Bilateral - Cardiovascular Exam Cardiovascular Exam: Tachycardia, +S1, +S2. absent: Murmur - GI/Abdominal Exam GI & Abdominal Exam: Soft, Normal Bowel Sounds. absent: Tenderness - Extremities Exam Extremities Exam: absent: Calf Tenderness, Pedal Edema - Neurological Exam Neurological Exam: Alert, Awake, Oriented x3 - Psychiatric Exam Psychiatric exam: Normal Mood - Skin Skin Exam: Dry, Warm Assessment and Plan - Assessment and Plan (Free Text) Assessment: 41F with PMH HTN, admitted for afib with RVR 2/2 likely thyrotoxic crisis. Cardiology consulted for management. Off cardizem drip, in NSR, on propranolol 20 mg PO TID and methimazole, echocardiogram reveals normal EF and aneurysmal atrial septum, no ASD. Pt to f/u outpatient with Endo. Will start home HTN meds today and likely discharge tomorrow. Plan: Afib with RVR 2/2 likely thyrotoxic crisis: - Pt initially p/w palpitations, weight loss, tremors. Denied cp, sob, diaphoresis, heat intolerance, n/v/d, abdominal pain. - D dimer neg, trop negx2, EKG shows Hr 193/min, afib with RVR - Received Propranolol 1 mg IVPx1, Verapamil 10 mg IVP x1-> 5 mg IVx2, PTU 100g POx1, Lugols soln 5mgx2 in ED - Started on Cardizem drip, currently weaned off, pt converted to NSR at 8 AM , HR 80-100's. - Currently HR 100-110, please c/w Propranalol 20 mg PO tid and methimazole 20mg PO tid - Echo cardiogram 05/16 shows EF 65-70%, atrium septum is aneurysmal, no doppler evidence of ASD, mild pulm HTN. - Thyroid US 05/16 shows midl to mod thyroid gland, R>L lobes with b/l solitary nodules. Dominant nodule at midpole right lobe. diffusely heterogenous and hyperemic parenchyma of the thyroid gland. Biopsy of right lobe lesion and LLL nodule? - Pt to go outpatient for f/u with Dr. Avelar. - Hx of HTN, on home med Valsartan/HCTZ 160 mg/12.5 mg once a day. Start HCTZ 12.5 mg PO once daily and Cozaar 25 mg PO daily. If pt's HR and BP well controlled, will likely discharge tomorrow. - Mild transminitis. cont to monitor. Discussed with Dr. Dotson. Brandie Felton, PGY1 <Will Dotson - Last Filed: 05/17/17 20:13> Objective - Vital Signs/Intake and Output Vital Signs (last 24 hours): Temp Pulse Resp BP Pulse Ox 98.7 F 108 H 35 H 156/105 H 100 05/17/17 12:00 05/17/17 14:51 05/17/17 14:51 05/17/17 12:26 05/17/17 09:20 Intake and Output: 05/17/17 05/18/17 18:59 06:59 Intake Total 850 Balance 850 - Labs Labs: 05/17/17 05:59 05/17/17 05:59 PT 11.0 SECONDS (9.7-12.2) 05/15/17 20:01 INR 1.0 05/15/17 20:01 APTT 35 SECONDS (21-34) H 05/15/17 20:01 Assessment and Plan - Assessment and Plan (Free Text) Plan: Patient seen and evaluated. Comfortable. For d/c today. F/U with me in 2-4 weeks
[2017-05-17] MEDS: Pantoprazole 40 mg EC Tab PO SCH (10:10)
[2017-05-17] MEDS: Enoxaparin 30 mg Syringe SC SCH (10:10)
--- NOTE | 2017-05-17 11:58 | CARD ---
APPROVED REPORT EKG Measurement Heart Aipt48OTOY CA [id number] <Conclusion> Normal sinus rhythm Prolonged QT Abnormal ECG
[2017-05-17 13:17] VITALS: BP 156/105; O2SAT 100
[2017-05-17 13:18] VITALS: TEMP 98.7
[2017-05-17 15:38] VITALS: PULSE 108; RESP 35
[2017-05-17] MEDS ORDERED: Pneumococcal 23-Valent Vaccine IM ONE (15:38)
--- NOTE | 2017-05-17 21:54 | CP.PCM.DIS ---
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 Status: Acute Hospital Course - Lab Results Lab Results: Micro Results 05/16/17 Unknown Nose MRSA Culture (Admit) - Final MRSA NOT DETECTED Most Recent Lab Values WBC 6.7 K/uL (4.8-10.8) 05/17/17 05:59 RBC 3.93 Mil/uL (3.80-5.20) 05/17/17 05:59 Hgb 10.2 g/dL (11.0-16.0) L 05/17/17 05:59 Hct 30.8 % (34.0-47.0) L 05/17/17 05:59 MCV 78.4 fL (81.0-99.0) L 05/17/17 05:59 MCH 25.8 pg (27.0-31.0) L 05/17/17 05:59 MCHC 32.9 g/dL (33.0-37.0) L 05/17/17 05:59 RDW 13.4 % (11.5-14.5) 05/17/17 05:59 Plt Count 211 K/uL (130-400) 05/17/17 05:59 MPV 8.8 fL (7.2-11.7) 05/17/17 05:59 Neut % (Auto) 56.1 % (50.0-75.0) 05/17/17 05:59 Lymph % (Auto) 32.3 % (20.0-40.0) 05/17/17 05:59 [place] % (Auto) 10.4 % (0.0-10.0) H 05/17/17 05:59 Eos % (Auto) 0.3 % (0.0-4.0) 05/17/17 05:59 Baso % (Auto) 0.9 % (0.0-2.0) 05/17/17 05:59 Neut # 3.8 K/uL (1.8-7.0) 05/17/17 05:59 Lymph # 2.2 K/uL (1.0-4.3) 05/17/17 05:59 [place] # 0.7 K/uL (0.0-0.8) 05/17/17 05:59 Eos # 0.0 K/uL (0.0-0.7) 05/17/17 05:59 Baso # 0.1 K/uL (0.0-0.2) 05/17/17 05:59 PT 11.0 SECONDS (9.7-12.2) 05/15/17 20:01 INR 1.0 05/15/17 20:01 APTT 35 SECONDS (21-34) H 05/15/17 20:01 D-Dimer, Quantitative 236 ng/mlDDU (0-243) 05/15/17 20:01 Sodium 142 mmol/L (132-148) 05/17/17 05:59 Potassium 3.5 mmol/L (3.6-5.2) L 05/17/17 05:59 Chloride 110 mmol/L (98-107) H 05/17/17 05:59 Carbon Dioxide 21 mmol/L (22-30) L 05/17/17 05:59 Anion Gap 15 (10-20) 05/17/17 05:59 BUN 20 mg/dL (7-17) H 05/17/17 05:59 Creatinine 0.6 MG/DL (0.7-1.2) L 05/17/17 05:59 Est GFR ( Amer) > 60 05/17/17 05:59 Est GFR (Non-Af Amer) > 60 05/17/17 05:59 Random Glucose 100 mg/dL (65-105) 05/17/17 05:59 Calcium 8.6 mg/dl (8.6-10.4) 05/17/17 05:59 Phosphorus 3.5 mg/dL (2.5-4.5) 05/17/17 05:59 Magnesium 2.0 mg/dL (1.6-2.3) 05/17/17 05:59 Total Bilirubin 0.5 mg/dL (0.2-1.3) 05/17/17 05:59 AST 31 U/L (14-36) 05/17/17 05:59 ALT 44 U/L (9-52) 05/17/17 05:59 Alkaline Phosphatase 93 U/L (38-126) 05/17/17 05:59 Troponin I < 0.0120 ng/mL (0.00-0.120) 05/16/17 06:44 Total Protein 5.4 g/dL (6.3-8.3) L 05/17/17 05:59 Albumin 2.6 g/dL (3.5-5.0) L 05/17/17 05:59 Globulin 2.9 gm/dL (2.2-3.9) 05/17/17 05:59 Albumin/Globulin Ratio 0.9 (1.0-2.1) L 05/17/17 05:59 Free T4 3.87 ng/dL (0.78-2.19) H 05/17/17 05:59 Thyroxine (T4) 19.2 ug/dL (5.5-11.0) H 05/17/17 05:59 Free T3 pg/mL 9.33 pg/mL (2.77-5.27) H 05/17/17 05:59 Total T3 2.82 nmol/L (1.49-2.60) H 05/17/17 05:59 TSH 3rd Generation < 0.02 mIU/L (0.46-4.68) L 05/17/17 05:59 Urine HCG, Qual Negative (NEGATIVE) 05/15/17 23:27 - Hospital Course Hospital Course: 41-year-old female with a history of hypertension admitted to the hospital with the sudden onset of palpitation, and also chest tightness. Patient in the emergency room was evaluated. Was noted to have atrial fibrillation, with the elevated heart rate. During the evaluation patient was noted to have atrial fibrillation, secondary to possible thyrotoxicosis with a very low level TSH. Also elevated at T3 and T4 level. Patient initially started on Cardizem drip. Propranolol started. Patient was given potassium iodide, I intravenous Inderal, and the propylthiouracil. Patient heart rate got better the following day, sinus rhythm noted, still having minimal sinus tachycardia. Endocrinology evaluation and cardiology evaluation was called. Echocardiogram is nonspecific. Clinically patient is stable. Heart rate is controlled blood pressure is controlled well. She will be discharged home today. She will be taking methimazole 20 mg 3 times a day, propranolol 20 mg 3 times a day. She will follow-up as an outpatient. She will the per the blood works in 1 week. Sonogram of the thyroid gland showing evidence of multinodular goiter. Most likely toxic nodularity noted. Follow-up as an outpatient. I spoke to the patient, and continue the current treatment. Discharge Exam - Head Exam Head Exam: ATRAUMATIC, NORMOCEPHALIC Discharge Plan - Discharge Medications Prescriptions: Propranolol [Inderal] 20 mg PO TID #90 tab methIMAzole [Tapazole] 20 mg PO BID #60 tab - Follow Up Plan Condition: STABLE Disposition: HOME/ ROUTINE Instructions: Propranolol (By mouth), Methimazole (By mouth), Atrial Fibrillation (DC), Hyperthyroidism (DC) Additional Instructions: Patient is stable for discharge to home. Patient is to stop taking hydrochlorothiazine/losartan. Patient must continue medications: Propanolol 20mg by mouth three times a day, Methimazole 20mg by mouth, twice a day. Patient should check blood pressure daily. If systolic blood pressure goes above 160, patient must go to Dr. Pollock's office. Patient needs to follow up with PMD, Dr. Pollock, within one week of discharge. Patient needs to follow up with home theater expert, Dr. Mancilla, within one week of discharge. Patient needs to follow up with supervisor volunteer services, Dr. Dotson, in one month. These instructions have been discussed with and understood by the patient. If symptoms reoccur, patient should return to the ED. Referrals: Will Dotson MD [Staff Provider] - Savanah Mancilla MD [Staff Provider] -
[2017-05-18 19:23] LABS: TSI 237 % baseline (<140)
== END 2017-05-17 15:30 | disposition home or self-care (01) | DRG 644 ==
LOC: C.ER 19:38 → EEVIPCON 19:38 → C.9I 22:27
PROVIDERS: ADMIT Internal Medicine; ATTEND Internal Medicine
DX: E05.21 Thyrotoxicosis with toxic multinodular goiter with thyrotoxic crisis or storm (principal); I43 Cardiomyopathy in diseases classified elsewhere; I48.91 Unspecified atrial fibrillation; I10 Essential (primary) hypertension

== ENCOUNTER 2018-02-09 16:08 | Emergency (ER) | payer OTHER ==
[2018-02-09 16:08] VITALS: BMI 27.5
--- NOTE | 2018-02-09 16:49 | C.PDOC ---
History Of Present Illness 42 year old female presents to the emergency department with complaints of left eye redness which she noticed earlier today. Patient reports a yellow discharge from her left eye but denies blurry vision. Time Seen by Provider: 02/09/18 16:36 History Per: Patient History/Exam Limitations: no limitations Onset/Duration Of Symptoms: Hrs Current Symptoms Are (Timing): Still Present Quality: Other (redness) Associated Symptoms: Discharge From Eye. denies: Decreased Vision Past Medical History Reviewed: Historical Data, Nursing Documentation, Vital Signs - Medical History PMH: HTN, Hyperthyroidism, Hypothyroidism Denies: Chronic Kidney Disease Surgical History: No Surg Hx Family History: States: No Known Family Hx - Social History Hx Tobacco Use: No Hx Alcohol Use: No Hx Substance Use: No - Immunization History Hx Tetanus Toxoid Vaccination: No Hx Influenza Vaccination: No Hx Pneumococcal Vaccination: No Review Of Systems Except As Marked, All Systems Reviewed And Found Negative. Eyes: Positive for: Redness, Other (discharge). Negative for: Vision Change Physical Exam - Physical Exam Appears: Non-toxic, No Acute Distress Skin: Warm, Dry Head: Atraumatic, Normacephalic Eye(s): bilateral: PERRL, EOMI, left: Other (injected to the medial aspect of eye) Neck: Supple Cardiovascular: Rhythm Regular Respiratory: Normal Breath Sounds Neurological/Psych: Oriented x3, Normal Speech, Normal Cognition, Normal Motor, Normal Sensation, Normal Reflexes Medical Decision Making Medical Decision Making: suspect conjunctivitis - will treat advise outpt fu. Disposition - Disposition Referrals: Luc Reid MD [Staff Provider] - Disposition: HOME/ ROUTINE Disposition Time: 05:00 Condition: STABLE Additional Instructions: please follow up with eye doctor. return to er with worsening symptoms or concerns. Prescriptions: Polymyxin/Trimethoprim Sulfate [Polytrim Ophth Soln] 1 drop LEFTEYE Q4 #1 bottle Instructions: Conjunctivitis ([place]) (DC) - Clinical Impression Clinical Impression: Conjunctivitis - Scribe Statement The provider has reviewed the documentation as recorded by the Scribe (Adiel Nation) Provider Attestation: All medical record entries made by the Scribe were at my direction and personally dictated by me. I have reviewed the chart and agree that the record accurately reflects my personal performance of the history, physical exam, medical decision making, and the department course for this patient. I have also personally directed, reviewed, and agree with the discharge instructions and disposition.
[2018-02-09 19:39] VITALS: BP 134/82; PULSE 76; RESP 18; TEMP 98.1; O2SAT 98
== END 2018-02-09 17:15 | disposition home or self-care (01) ==
LOC: C.ER 16:08
DX: H10.9 Unspecified conjunctivitis (principal); I10 Essential (primary) hypertension

== ENCOUNTER 2018-11-26 13:48 | Emergency (ER) | payer OTHER ==
[2018-11-26 13:58] VITALS: BMI 27.4
[2018-11-26 14:32] VITALS: BP 135/84; PULSE 97; RESP 16; TEMP 99.5; O2SAT 98
[2018-11-26 14:49] LABS: BASO # 0.1 K/uL (0.0-0.2); BASO % 1.1 % (0.0-2.0); EOS # 0.1 K/uL (0.0-0.7); EOS % 0.8 % (0.0-4.0); LYMPH # 2.1 K/uL (1.0-4.3); LYMPH % 18.7 % (20.0-40.0); MEAN CORPUSCULAR HEMOGLOBIN 28.6 pg (27.0-31.0); MEAN CORPUSCULAR HGB CONC 32.9 g/dL (33.0-37.0); MONO # 0.7 K/uL (0.0-0.8); NEUT # 8.1 K/uL (1.8-7.0); NEUT % 73.4 % (50.0-75.0); RBC 4.17 Mil/uL (3.80-5.20); RED CELL DISTRIBUTION WIDTH 13.6 % (11.5-14.5); WHITE BLOOD COUNT 11.1 K/uL (4.8-10.8)
[2018-11-26 14:52] LABS: HEMOGLOBIN 11.9 g/dL (11.0-16.0); MEAN CELL VOLUME 86.9 fL (81.0-99.0)
[2018-11-26 14:57] LABS: HCG,QUALITATIVE URINE POSITIVE (NEGATIVE)
[2018-11-26 14:57] LABS: PROTHROMBIN TIME 10.6 SECONDS (9.7-12.2)
[2018-11-26 14:59] LABS: URINE BILIRUBIN NEGATIVE (NEGATIVE); URINE CLARITY Hazy (Clear); URINE COLOR RED (YELLOW); URINE GLUCOSE (UA) Normal (Normal)
[2018-11-26 15:00] LABS: URINE BLOOD 3+ (NEGATIVE); URINE LEUKOCYTE ESTERASE NEGATIVE Leu/uL (Negative); URINE PROTEIN 2+ mg/dL (NEGATIVE); URINE UROBILINOGEN Normal mg/dL (0.2-1.0)
[2018-11-26 15:01] LABS: SQUAMOUS EPITHIAL 1 /hpf (0-5)
--- NOTE | 2018-11-26 15:20 | US ---
Date of service: 11/26/2018 Indication: prolonged vag bleed Comparison: None available Technique: Real-time transabdominal pelvic ultrasound was performed. In addition a transvaginal pelvic ultrasound was necessary to better depict pelvic anatomy. Findings: Uterus measures approximately 11.4 x 7.0 x 4.2 cm. Two probable uterine fibroids: 3.0 x 2.6 x 2.4 cm anterior uterine fibroid and 2.1 x 1.7 x 2.1 cm posterior uterine fibroid. Cervix length measures 5.7 cm. Endometrium measures approximately 1.6 cm in diameter. Gestational sac measuring approximately 2.3 cm consistent with gestational age 5 weeks 4 days noted at the level of the cervix. 2 mm yolk sac. No evidence of pole at this time. The right ovary measures 3.5 x 2.5 x 3.4 cm. The left ovary measures 3.2 x 1.5 x 2.8 cm. Blood flow was demonstrated to both ovaries. Impression: Gestational sac identified at the level of the cervix. Gestational sac size consistent with gestational age 5 weeks 4 days. 2 mm yolk sac. No evidence of pole at this time. Correlate clinically. Fibroids. Findings discussed with Dr. Campbell on 11/26/18 at 3:13 p.m.
[2018-11-26 15:25] LABS: ALB/GLOB RATIO 1.5 (1.0-2.1); ALBUMIN 4.3 g/dL (3.5-5.0); ALT/SGPT 11 U/L (9-52); AST/SGOT 37 U/L (14-36); BLOOD UREA NITROGEN 8 mg/dL (7-17); CALCIUM 9.2 mg/dl (8.6-10.4); GFR NON-AFRICAN AMERICAN > 60
--- NOTE | 2018-11-26 15:45 | C.PDOC ---
History Of Present Illness 43 y/o female presents to the ED complaining of vaginal bleeding for the last week. Patient notes the bleeding is heavier today with clots. She admits she is sexually active without using protection. Otherwise patient denies any nausea, vomiting, pain, vaginal discharge, or change in urination. Time Seen by Provider: 11/26/18 13:58 Chief Complaint (Nursing): Female Genitourinary History Per: Patient History/Exam Limitations: no limitations Onset/Duration Of Symptoms: Days Current Symptoms Are (Timing): Still Present Abnormal Vaginal Bleeding: Yes Past Medical History Reviewed: Historical Data, Nursing Documentation, Vital Signs Vital Signs: Last Vital Signs Temp 99.5 F 11/26/18 14:28 Pulse 97 H 11/26/18 14:28 Resp 16 11/26/18 14:28 BP 135/84 11/26/18 14:28 Pulse Ox 98 11/26/18 14:28 - Medical History PMH: HTN, Hypercholesterolemia, Hyperthyroidism, Hypothyroidism Denies: Chronic Kidney Disease Surgical History: No Surg Hx Family History: States: No Known Family Hx - Social History Hx Tobacco Use: No Hx Alcohol Use: No Hx Substance Use: No - Immunization History Hx Tetanus Toxoid Vaccination: No Hx Influenza Vaccination: No Hx Pneumococcal Vaccination: No Review Of Systems Constitutional: Negative for: Fever, Chills Cardiovascular: Negative for: Palpitations Respiratory: Negative for: Shortness of Breath Gastrointestinal: Negative for: Vomiting, Abdominal Pain, Diarrhea Genitourinary: Positive for: Vaginal Bleeding. Negative for: Dysuria, Frequency, Vaginal Discharge Neurological: Negative for: Weakness, Dizziness Physical Exam - Physical Exam Appears: Non-toxic, No Acute Distress Skin: Normal Color, Warm, No Pale Head: Atraumatic, Normacephalic Eye(s): bilateral: Normal Inspection (no conjunctival pallor), PERRL, EOMI Oral Mucosa: Moist Neck: Normal ROM Chest: Symmetrical Cardiovascular: Rhythm Regular, No Murmur Respiratory: Normal Breath Sounds, No Accessory Muscle Use Gastrointestinal/Abdominal: Soft, No Tenderness, No Distention, No Guarding Back: No CVA Tenderness Extremity: Bilateral: Atraumatic, Normal Color And Temperature Pulses: Left Dorsalis Pedis: Normal, Right Dorsalis Pedis: Normal Neurological/Psych: Oriented x3, Normal Speech ED Course And Treatment - Laboratory Results Result Diagrams: 11/26/18 14:29 11/26/18 14:29 Lab Results: PT 10.6 SECONDS (9.7-12.2) 11/26/18 14:29 INR 1.0 11/26/18 14:29 APTT 34 SECONDS (21-34) 11/26/18 14:29 Total Bilirubin 0.5 mg/dL (0.2-1.3) 11/26/18 14:29 AST 37 U/L (14-36) H D 11/26/18 14:29 ALT 11 U/L (9-52) 11/26/18 14:29 Alkaline Phosphatase 75 U/L (38-126) 11/26/18 14:29 Total Protein 7.1 g/dL (6.3-8.3) 11/26/18 14:29 Albumin 4.3 g/dL (3.5-5.0) 11/26/18 14:29 Globulin 2.8 gm/dL (2.2-3.9) 11/26/18 14:29 Albumin/Globulin Ratio 1.5 (1.0-2.1) 11/26/18 14:29 Urine Color Red (YELLOW) 11/26/18 14:53 Urine Clarity Hazy (Clear) 11/26/18 14:53 Urine pH 7.0 (5.0-8.0) 11/26/18 14:53 Ur Specific [place] 1.018 (1.003-1.030) 11/26/18 14:53 Urine Protein 2+ mg/dL (NEGATIVE) H 11/26/18 14:53 Urine Glucose (UA) Normal mg/dL (Normal) 11/26/18 14:53 Urine Ketones Negative mg/dL (NEGATIVE) 11/26/18 14:53 Urine Blood 3+ (NEGATIVE) H 11/26/18 14:53 Urine Nitrate Negative (NEGATIVE) 11/26/18 14:53 Urine Bilirubin Negative (NEGATIVE) 11/26/18 14:53 Urine Urobilinogen Normal mg/dL (0.2-1.0) 11/26/18 14:53 Ur Leukocyte Esterase Negative Abhijit/uL (Negative) 11/26/18 14:53 Urine WBC (Auto) 2 /hpf (0-5) 11/26/18 14:53 Urine RBC (Auto) 4634 /hpf (0-3) H 11/26/18 14:53 Ur Squamous Epith Cells 1 /hpf (0-5) 11/26/18 14:53 Urine HCG, Qual Positive (NEGATIVE) 11/26/18 14:53 Beta HCG, Quant 52865.00 mIU/ML 11/26/18 14:29 Urine HCG, Qual Positive (NEGATIVE) 11/26/18 14:53 Lab Interpretation: Abnormal (O+, QHCG 19,885) Urine POC: Positive O2 Sat by Pulse Oximetry: 98 (RA) Pulse Ox Interpretation: Normal - CT Scan/US Transvaginal/ US Other Rad Studies (CT/US): Read By Radiologist, Radiology Report Reviewed CT/US Interpretation: Impression: Gestational sac identified at the level of the cervix. Gestational sac size consistent with gestational age 5 weeks 4 days. 2 mm yolk sac. No evidence of pole at this time. Correlate clinically. Fibroids. Reevaluation Time: 15:44 Reassessment Condition: Unchanged Medical Decision Making Medical Decision Making: AB in progress no ectopic preg stable HGB 12 d/w pt's OBGYN service ok to f/u as opt no further meds/tx this time. Disposition Doctor Will See Patient In The: Office Counseled Patient/Family Regarding: Studies Performed, Diagnosis - Disposition Referrals: [facility] [Outside] [facility] [Outside] [facility] [Outside] [facility] [Outside] Disposition: HOME/ ROUTINE Disposition Time: 15:45 Condition: GOOD Additional Instructions: O+ QHCG 19,885 H AB in progress HGB 12 stable outpatient follow-up w Dr. Gwen Luz as needed Call for an appt. Instructions: Miscarriage (DC) Forms: [facility] (Danish) - Clinical Impression Clinical Impression: Vaginal bleeding affecting early - Scribe Statement The provider has reviewed the documentation as recorded by the Parisibbranden King Provider Attestation: All medical record entries made by the Parisibe were at my direction and personally dictated by me. I have reviewed the chart and agree that the record accurately reflects my personal performance of the history, physical exam, medical decision making, and the department course for this patient. I have also personally directed, reviewed, and agree with the discharge instructions and disposition.
== END 2018-11-26 15:57 | disposition home or self-care (01) ==
LOC: C.ER 13:48
DX: O20.9 Hemorrhage in early pregnancy, unspecified (principal); Z3A.01 Less than 8 weeks gestation of pregnancy

== ENCOUNTER 2018-12-03 13:42 | Outpatient (CLI) | payer OTHER | END 2018-12-03 13:43 | disposition home or self-care (01) | LOC: C.RADH 13:42 ==

== ENCOUNTER 2018-12-03 16:41 | Inpatient (IN) | payer OTHER ==
[2018-12-03] MEDS ORDERED: Sodium Chloride 0.9% 1,000 ML IV ONE (16:49)
--- NOTE | 2018-12-03 16:54 | C.PDOC ---
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 Pt is 6 wks 4 days . LMP 10/27/2018. Pt with vaginal bleeding since 11/20/2018. Outpatient sonogram from today showed miscar riage in progess at level of the cervix (report is in [employer]). I spoke to patient's PMD Dr. Gwen Reese ([phone]) and she states that so long as pt is not bleeding heavy, she is scheduled for a D&C tomorrow AM. However, patient is now a little dizzy and with several trips to restroom today with bleeding. DIRECTOR OF FOOD AND NUTRITION SERVICES: Dr. Gwen Reese PCP: Dr. Pollock / Chief Complaint (Nursing): Medical Clearance History Per: Patient Onset/Duration Of Symptoms: Days Past Medical History Reviewed: Historical Data, Nursing Documentation, Vital Signs MICHELE Report Viewed: No - Medical History PMH: HTN, Hypercholesterolemia Other PMH: Thyroid disease Surgical History: No Surg Hx Family History: States: No Known Family Hx - Social History Hx Tobacco Use: No Hx Alcohol Use: No Hx Substance Use: No - Immunization History Hx Tetanus Toxoid Vaccination: No Hx Influenza Vaccination: No Hx Pneumococcal Vaccination: No Review Of Systems Except As Marked, All Systems Reviewed And Found Negative. Constitutional: Negative for: Fever Cardiovascular: Negative for: Chest Pain Respiratory: Negative for: Shortness of Breath Gastrointestinal: Positive for: Nausea Neurological: Positive for: Weakness (after used restroom) Physical Exam - Physical Exam Appears: Non-toxic, Other (Looks tired) Skin: Pale Head: Atraumatic Eye(s): bilateral: Normal Inspection, EOMI Ear(s): Bilateral: Normal, Other (palepebral conjunctiva pale) Nose: Normal Tongue: Normal Appearing Lips: Normal Appearing Teeth: Normal Dentition Gingiva: Normal Appearing Throat: Normal Neck: Normal Chest: Symmetrical Cardiovascular: Rhythm Regular Respiratory: Normal Breath Sounds, No Rales, No Rhonchi, No Wheezing Rectal: Deferred Pelvic: Other (deferred) ED Course And Treatment - Laboratory Results Result Diagrams: 12/03/18 17:16 12/03/18 17:16 Medical Decision Making Medical Decision Making: Initial Impression: Inevitable Initial Plan: Will check labs to see level of blood loss / if anemic; hydrate. Will check orthostatics. Progress note 5:27 PM - DIRECTOR OF FOOD AND NUTRITION SERVICES at bedside. Progress note 5:49 PM - H/H with signf drop compared to [address] Valentina Pena recommends D&C this evening. I have ordered blood transfusion. I spoke to anesthesia and anesthesia will evaluate the pt. Progress note 5:58 PM - Anesthesia at bedside evaluating pt. They recommending giving 2 units of PRBCs but cross match her for a total of 4 units. Progress note 7:05 PM - Blood transfusion has started (2 units are running). Pt going upstairs to DIRECTOR OF FOOD AND NUTRITION SERVICES service now for D&C. Patient endorsed to Gynecology attending Dr. Valentina Pena who is ready for the patient. / Disposition - Disposition Disposition: HOSPITALIZED Disposition Time: 17:43 Condition: FAIR - POA Present On Arrival: None - Clinical Impression Clinical Impression: Inevitable , Anemia, Hypokalemia
[2018-12-03 17:01] VITALS: BMI 30.2
[2018-12-03 17:20] LABS: BASO # 0.1 K/uL (0.0-0.2); BASO % 0.8 % (0.0-2.0); EOS # 0.3 K/uL (0.0-0.7); EOS % 2.7 % (0.0-4.0); LYMPH # 2.3 K/uL (1.0-4.3); LYMPH % 19.7 % (20.0-40.0); MEAN CELL VOLUME 85.8 fL (81.0-99.0); MEAN CORPUSCULAR HEMOGLOBIN 28.1 pg (27.0-31.0); MEAN CORPUSCULAR HGB CONC 32.8 g/dL (33.0-37.0); MEAN PLATELET VOLUME 8.1 fL (7.2-11.7); MONO # 0.8 K/uL (0.0-0.8); MONO % 6.6 % (0.0-10.0); NEUT # 8.3 K/uL (1.8-7.0); NEUT % 70.2 % (50.0-75.0); NRBC % 0.2 % (0.0-2.0); RBC 2.4 Mil/uL (3.80-5.20); RED CELL DISTRIBUTION WIDTH 13.8 % (11.5-14.5); WHITE BLOOD COUNT 11.8 K/uL (4.8-10.8)
[2018-12-03 17:22] LABS: HEMOGLOBIN 6.8 g/dL (11.0-16.0)
[2018-12-03 17:27] LABS: INR 0.9
[2018-12-03 17:40] LABS: ALB/GLOB RATIO 1.4 (1.0-2.1); ALBUMIN 3.8 g/dL (3.5-5.0); ALT/SGPT 13 U/L (9-52); AST/SGOT 40 U/L (14-36); BLOOD UREA NITROGEN 8 mg/dL (7-17); CALCIUM 8.8 mg/dl (8.6-10.4); GFR NON-AFRICAN AMERICAN > 60
--- NOTE | 2018-12-03 17:52 | CP.PCM.CON ---
History of Present Illness - History of Present Illness History of Present Illness: PT IS 43YO @ 5WEEKS BY HER LMP, PRESENTED TO THE ER WITH COMPLAINTS OF VAGINAL BLEEDING FOR ONE DAY. PT HAD A SUCTION D&C SCHEDULED WITH HER PRIMARY DINKEY DISPATCHER FOR MISSED . PT STATES THAT AFTER THE PELVIC SONO TODAY, SHE S TARTED TO BLEED HEAVILY , PASSING CLOTS. PT IS FEELING LETHARGIC AND DIZZY. Review of Systems - Cardiovascular Cardiovascular: absent: As Per HPI, Acrocyanosis, Chest Pain, Chest Pain at Rest, Chest Pain with Activity, Claudication, Diaphoresis, Dyspnea, Dyspnea on Exertion, Edema, Irregular Heart Rhythm, Pain Radiating to Arm/Neck/Jaw, Leg Edema, Leg Ulcers, Lightheadedness, Orthopnea, Palpitations, Paroxysmal Nocturnal Dyspnea, Pedal Edema, Radiating Pain, Rapid Heart Rate, Slow Heart Rate, Syncope, Other - Respiratory Respiratory: absent: As Per HPI, Cough, Dyspnea, Hemoptysis, Dyspnea on Exertion, Wheezing, Snoring, Stridor, Pain on Inspiration, Chest Congestion, Excessive Mucous Production, Change in Mucous Color, Pain with Coughing, Other - Gastrointestinal Gastrointestinal: Abdominal Pain. absent: As Per HPI, Belching, Bloating, Canseco ge in Bowel Habits, Change in Stool Character, Coffee Ground Emesis, Constipation, Cramping, Diarrhea, Dyspepsia, Dysphagia, Early Satiety, Excessive Flatus, Fecal Incontinence, Heartburn, Hematemesis, Hematochezia, Loose Stools, Melena, Nausea, Odynophagia, Temesmus, Vomiting, Other Past Patient History - Infectious Disease Hx of Infectious Diseases: None - Past Medical History & Family History Past Medical History?: Yes - Past Social History Smoking Status: Never Smoked - CARDIAC Hx Hypercholesterolemia: Yes Hx Hypertension: Yes - PULMONARY Hx Respiratory Disorders: No Hx Asthma: No Hx Bronchitis: No Hx Chronic Obstructive Pulmonary Disease (COPD): No - NEUROLOGICAL Hx Neurological Disorder: No - HEENT Hx HEENT Problems: No - RENAL Hx Chronic Kidney Disease: No - ENDOCRINE/METABOLIC Hx Hyperthyroidism: Yes Hx Hypothyroidism: Yes - HEMATOLOGICAL/ONCOLOGICAL Hx Blood Disorders: No - INTEGUMENTARY Hx Dermatological Problems: No - MUSCULOSKELETAL/RHEUMATOLOGICAL Hx Musculoskeletal Disorders: No - GASTROINTESTINAL Hx Gastrointestinal Disorders: No - GENITOURINARY/GYNECOLOGICAL Hx Genitourinary Disorders: No - PSYCHIATRIC Hx Substance Use: No - SURGICAL HISTORY Hx Surgeries: No - ANESTHESIA Hx Anesthesia: No Meds Allergies/Adverse Reactions: Allergies Allergy/AdvReac Type Severity Reaction Status Date / Time No Known Allergies Allergy Verified 12/03/18 16:47 Physical Exam - Constitutional Appears: In Acute Distress - Head Exam Head Exam: ATRAUMATIC - Eye Exam Pupil Exam: absent: Fixed, Irregular, Miosis, Mydriatic, NORMAL ACCOMODATION, PERRL, Unequal - ENT Exam ENT Exam: absent: Mucous Membranes Dry, Mucous Membranes Moist, Normal Exam, Normal External Ear Exam, Normal Oropharynx, TM's Normal Bilaterally - Neck Exam Neck exam: Negative for: Full Rom, Lymphadenopathy, Meningismus, Normal Inspection, Tenderness, Thyromegaly - Respiratory Exam Respiratory Exam: absent: Accessory Muscle Use, Chest Wall Tenderness, Decreased Breath Sounds, Clear to Auscultation Bilateral, Prolonged Expiratory Phase, Rales, Rhonchi, Wheezes, Respiratory Distress, Stridor, NORMAL BREATHING PATTERN - Cardiovascular Exam Cardiovascular Exam: absent: Bradycardia, Tachycardia, Clicks, Diastolic murmur, Gallop, Irregular Rhythm, REGULAR RHYTHM, JVD, RRR, Rubs, +S1, +S2, +S4, Systolic Murmur - Exam Speculum exam: Vaginal Bleeding (CERVIX DILATED, PRODUCTS OF CONCEPTION PROTRUDING FROM THE CERIVCAL OS.) Bimanual exam: absent: Adenexal Mass, Adnexal, Cervical Motion Tendernes, NORMAL BIMANUAL EXAM, Uterine Enlargement, Uterine Tenderness - Back Exam Back exam: absent: CVA tenderness (L), CVA tenderness (R), FULL ROM, muscle spasm, NORMAL INSPECTION, paraspinal tenderness, rash noted, tenderness, vertebral tenderness Results - Vital Signs Recent Vital Signs: Last Vital Signs Temp 99.6 F 12/03/18 16:48 Pulse 110 H 12/03/18 16:48 Resp 16 12/03/18 16:48 BP 131/88 12/03/18 16:48 Pulse Ox 100 12/03/18 16:48 - Labs Result Diagrams: 12/03/18 21:27 12/03/18 17:16 Labs: Laboratory Results - last 24 hr 12/03/18 12/03/18 12/03/18 17:16 17:16 17:16 WBC 11.8 H RBC 2.40 L Hgb 6.8 L D Hct 20.6 L MCV 85.8 MCH 28.1 MCHC 32.8 L RDW 13.8 Plt Count 263 MPV 8.1 Neut % (Auto) 70.2 Lymph % (Auto) 19.7 L [place] % (Auto) 6.6 Eos % (Auto) 2.7 Baso % (Auto) 0.8 Neut # (Auto) 8.3 H Lymph # (Auto) 2.3 [place] # (Auto) 0.8 Eos # (Auto) 0.3 Baso # (Auto) 0.1 INR 0.9 APTT 32 Sodium 134 Potassium 3.3 L Chloride 103 Carbon Dioxide 22 Anion Gap 12 BUN 8 Creatinine 0.6 L Est GFR ( Amer) > 60 Est GFR (Non-Af Amer) > 60 Random Glucose 89 Calcium 8.8 Total Bilirubin 0.6 AST 40 H ALT 13 Alkaline Phosphatase 77 Total Protein 6.6 Albumin 3.8 Globulin 2.8 Albumin/Globulin Ratio 1.4 - Impressions Impression: INCOMPLETE Assessment & Plan - Assessment and Plan (Free Text) Assessment: [id number] @ 5 WEEKS WITH INCOMPLETE AND ANEMIA Plan: 1) INCOMPLETE - PELVIC EXAM: ACTIVE BLEEDING WTH POOLING OF BLOOD IN THE VAGINA. PRODUCTS OF CONCEPTION IN THE CERVICAL OS WITH CONTINUED ACTIVE BLEEDING. -D/T COPIOUS AMOUNT BLOOD POOLING IN THE VAGINA D/T ACTIVE BLEEDING AND SYMPTOMATIC ANEMIA (HGB 6,8), UNSTABLE VITAL SIGNS WITH A DILATED CERVICAL OS, PT WAS COUNSELED ABOUT A SUCTION D&C - WILL TAKE PT FOR SUCTION D&C D/T ACTIVE BLEEDING. - RH+ - D/W PT RISKS, BENEFITS AND ALTERNATIVES TO THE PROCEDURE, INCLUDING BLEEDING, INFECTION, PERFORATION. BLOOD TRANSFUSION. PT IS AWARE OF THE RISKS AND AGREES TO THE BLOOD TRANSFUSITON 2) ANEMIA: HGB 6.8. PT IS SYMPTOMATIC. LETHARGIC AND DIZZY. - WILL TRANSFUSE 2 UNITS OF BLOOD - NEEDS POST TRANSFUSION CBC 6 HOURS POST PROCEDURE. -
[2018-12-03] MEDS ORDERED: Morphine 4 MG/ML VIAL ONE (18:20)
[2018-12-03] MEDS ORDERED: Oxytocin 10 Units/ml Inj ONE (18:38)
[2018-12-03] MEDS ORDERED: Midazolam 2 MG/2 ML VIAL ONE (19:26)
[2018-12-03] MEDS ORDERED: Propofol 10 mg/ml Inj (20 ML) ONE (19:26)
[2018-12-03] MEDS ORDERED: HYDROmorphone 0.5 mg/0.5 ml ISec IVP PRN (20:19)
[2018-12-03] MEDS ORDERED: Lactated Ringer's 1,000 ML IV ONE (21:00)
[2018-12-03] MEDS: Lactated Ringer's 1,000 ML IV SCH (21:40)
[2018-12-03 21:46] LABS: BASO % 0.4 % (0.0-2.0); EOS # 0.2 K/uL (0.0-0.7); EOS % 1.7 % (0.0-4.0); LYMPH # 1.6 K/uL (1.0-4.3); LYMPH % 15.5 % (20.0-40.0); MEAN CELL VOLUME 88.3 fL (81.0-99.0); MEAN CORPUSCULAR HEMOGLOBIN 29.2 pg (27.0-31.0); MONO # 0.6 K/uL (0.0-0.8); MONO % 5.5 % (0.0-10.0); NEUT # 7.9 K/uL (1.8-7.0); NEUT % 76.9 % (50.0-75.0); RBC 2.76 Mil/uL (3.80-5.20); RED CELL DISTRIBUTION WIDTH 14.3 % (11.5-14.5); WHITE BLOOD COUNT 10.3 K/uL (4.8-10.8)
[2018-12-03] MEDS ORDERED: Potassium Chloride 20 mEq ER Tab PO ONE (23:45)
[2018-12-04 00:33] LABS: BASO % 0.4 % (0.0-2.0); EOS # 0.1 K/uL (0.0-0.7); EOS % 1.3 % (0.0-4.0); LYMPH # 1.7 K/uL (1.0-4.3); LYMPH % 16.4 % (20.0-40.0); MEAN CELL VOLUME 88.7 fL (81.0-99.0); MEAN CORPUSCULAR HEMOGLOBIN 29.1 pg (27.0-31.0); MEAN CORPUSCULAR HGB CONC 32.8 g/dL (33.0-37.0); MONO # 0.6 K/uL (0.0-0.8); MONO % 5.5 % (0.0-10.0); NEUT # 7.9 K/uL (1.8-7.0); NEUT % 76.4 % (50.0-75.0); RBC 2.76 Mil/uL (3.80-5.20); RED CELL DISTRIBUTION WIDTH 14.5 % (11.5-14.5); WHITE BLOOD COUNT 10.3 K/uL (4.8-10.8)
--- NOTE | 2018-12-04 03:44 | OP ---
PROCEDURE DATE: 12/03/2018 PREOPERATIVE DIAGNOSIS: Incomplete . POSTOPERATIVE DIAGNOSIS: Complete . PROCEDURE PERFORMED: Suction dilation and curettage. SURGEON: Valentina Pena MD TYPE OF ANESTHESIA: General. ESTIMATED BLOOD LOSS: 200 mL. COMPLICATIONS: None. FINDINGS: Products of conception consistent with 6-week intrauterine . INDICATION: The patient is a 43-year-old 3 para 0-0-2-0 at five weeks based upon her last menstrual period presented to the ER with complaints of heavy bleeding starting today. A workup in the ER was done, and the patient was currently with a beta quant of 15,000. Ultrasound is still pending. On exam in the emergency room, the cervical os was dilated with products of conception extruding from the os with copious amounts of active vaginal bleeding with pooling of blood in the vaginal vault. Additionally, the cervix was noted to be about 2 cm dilated. The findings were discussed with the patient and options including surgical management via dilation and curettage versus conservative management were discussed with the patient. After discussion of these options, the patient opted for suction D and C. The patient was described the procedure in detail including risk of infection, bleeding, injury to surrounding organs including risk of perforation. Informed consent was obtained prior to proceeding with the procedure. DESCRIPTION OF PROCEDURE: The patient was taken into the operating room and prepped and draped in usual manner for a suction D and C. General anesthesia was administered without difficulty. Vaginal area was prepped with Betadine. Pelvic exam was performed. The uterus was noted to be 4 cm anteverted. Weighted speculum was placed in the vagina. The anterior lip of the cervix was grasped with a single-toothed tenaculum. An 8 mm sucking curettage was advanced into the uterine cavity without difficulty and was used to suction the contents of the uterus. Following the removal of the products of conception, a sharp curette was advanced into the uterine cavity and was used to scrape the four stanley of uterus until a gritty texture was noted. At this time, the suction curette was advanced two additional times to suction any remaining products. All instruments were then removed. Hemostasis was visualized. The patient was stable at the completion of the procedure. All sponge, lap, and instrument counts were noted to be correct at the end of procedure. Valentina Pena MD
[2018-12-04] MEDS: Lactated Ringer's 1,000 ML IV SCH (05:50)
[2018-12-04 06:15] LABS: BASO # 0.1 K/uL (0.0-0.2); BASO % 0.7 % (0.0-2.0); EOS # 0.2 K/uL (0.0-0.7); EOS % 2.6 % (0.0-4.0); HEMOGLOBIN 7.8 g/dL (11.0-16.0); LYMPH # 1.6 K/uL (1.0-4.3); LYMPH % 18.3 % (20.0-40.0); MEAN CELL VOLUME 87.3 fL (81.0-99.0); MEAN CORPUSCULAR HEMOGLOBIN 29.4 pg (27.0-31.0); MEAN CORPUSCULAR HGB CONC 33.7 g/dL (33.0-37.0); MEAN PLATELET VOLUME 8.9 fL (7.2-11.7); MONO # 0.5 K/uL (0.0-0.8); MONO % 5.9 % (0.0-10.0); NEUT # 6.4 K/uL (1.8-7.0); NEUT % 72.5 % (50.0-75.0); RBC 2.65 Mil/uL (3.80-5.20); RED CELL DISTRIBUTION WIDTH 14.4 % (11.5-14.5); WHITE BLOOD COUNT 8.8 K/uL (4.8-10.8)
[2018-12-04 06:29] VITALS: RESP 18; O2SAT 98
--- NOTE | 2018-12-04 06:29 | CP.PCM.PN ---
Subjective - Date & Time of Evaluation Date of Evaluation: 12/04/18 Time of Evaluation: 06:25 - Subjective Subjective: PT SEEN THIS AM AND DOING WELL. TOLERATING PO DIET. PT IS NO LONGER BLEEDING. CURRENTLY WITH NO COMPLAINTS AT THIS TIME. Objective - Vital Signs/Intake and Output Vital Signs (last 24 hours): Temp Pulse Resp BP Pulse Ox 98.8 F 94 H 15 112/73 97 12/04/18 00:00 12/04/18 01:00 12/04/18 01:00 12/04/18 00:37 12/04/18 01:00 Intake and Output: 12/03/18 12/04/18 18:59 06:59 Intake Total 300 Balance 300 - Medications Medications: Current Medications Lactated Ringer's (Lactated Ringer's) 1,000 mls @ 125 mls/hr IV .Q8H SALAZAR Stop: 12/06/18 23:59 Last Admin: 12/04/18 05:50 Dose: 125 mls/hr Ibuprofen (Motrin Tab) 600 mg PO Q6 PRN PRN Reason: pain Stop: 12/09/18 21:13 - Labs Labs: 12/04/18 00:30 12/03/18 17:16 PT 10.0 SECONDS (9.7-12.2) 12/03/18 17:16 INR 0.9 12/03/18 17:16 APTT 32 SECONDS (21-34) 12/03/18 17:16 - Constitutional Appears: Well, No Acute Distress - Head Exam Head Exam: ATRAUMATIC - GI/Abdominal Exam GI & Abdominal Exam: Rigid, Soft Assessment and Plan - Assessment and Plan (Free Text) Assessment: S/P SUCTION D&C FOR INCOMPLETE . POST OP DAY 1 1) VSS: AFEBRILE 2) ANEMIA: S/P 3 UNITS OF PRBC. LAST HGB 8.0 AT MIDNIGHT. CBC FOR THIS AM PENDING. 3) ENCOURAGED AMBULATION. 4) CONSIDER D/C HOME IF HGB/HCT IS STABLE.
[2018-12-04 06:37] LABS: ALBUMIN 2.4 g/dL (3.5-5.0); BLOOD UREA NITROGEN 6 mg/dL (7-17); CALCIUM 7.3 mg/dl (8.6-10.4); GFR NON-AFRICAN AMERICAN > 60
[2018-12-04 06:38] LABS: ALB/GLOB RATIO 1.2 (1.0-2.1); ALT/SGPT 13 U/L (9-52); AST/SGOT 22 U/L (14-36)
--- NOTE | 2018-12-04 12:46 | CARD ---
APPROVED REPORT Date of service: 12/03/2018 EKG Measurement Heart [id number] <Conclusion> Sinus tachycardia Cannot rule out Anterior infarct, age undetermined Abnormal ECG
[2018-12-04 15:07] VITALS: BP 108/75; PULSE 88; TEMP 98.5
--- NOTE | 2018-12-05 00:17 | CP.PCM.DIS ---
Provider - Provider Date of Admission: 12/03/18 21:15 Attending physician: Valentina Pena Consults: 12/03/18 17:26 Physician Consult Stat Comment: Consulting Provider: Valentina Pena Consulting Physician: Valentina Pena Reason for Consult: Vaginal bleeding / inevitable Time Spent in preparation of Discharge (in minutes): 20 Diagnosis - Discharge Diagnosis (1) Inevitable Status: Resolved Priority: High Onset Date: ~12/03/18 Comment: S/P D&C without incident. Patient advised to follow up with private Emt B in 1 week. Also, discussed consideration of genetic evaluation for her and her . (2) Hemorrhage affecting in first trimester Status: Resolved Priority: High Onset Date: ~12/03/18 Comment: S/P blood transfusion - 2 units PRBCs. Post transfusion H/H 8/24.5; repeat this morning 7.8/23.1. Patient is asymptomatic and hemodynamically stable. Counseled on iron supplemtation, increase p.o.intake of iron-rich foods. (3) Hypokalemia Status: Acute Priority: Medium Onset Date: ~12/03/18 Comment: S/P potassium replacement. Repeat potassium level 3.5. Counseled on p.o. intake of foods rich in potassium (bananas, ornages) (4) Hypertension Status: Chronic Priority: Medium Onset Date: ~2015 Comment: BP wnl. Follow up with PCP as needed Hospital Course - Lab Results Lab Results: Most Recent Lab Values WBC 8.8 K/uL (4.8-10.8) 12/04/18 06:00 RBC 2.65 Mil/uL (3.80-5.20) L 12/04/18 06:00 Hgb 7.8 g/dL (11.0-16.0) L 12/04/18 06:00 Hct 23.1 % (34.0-47.0) L 12/04/18 06:00 MCV 87.3 fL (81.0-99.0) 12/04/18 06:00 MCH 29.4 pg (27.0-31.0) 12/04/18 06:00 MCHC 33.7 g/dL (33.0-37.0) 12/04/18 06:00 RDW 14.4 % (11.5-14.5) 12/04/18 06:00 Plt Count 166 K/uL (130-400) 12/04/18 06:00 MPV 8.9 fL (7.2-11.7) 12/04/18 06:00 Neut % (Auto) 72.5 % (50.0-75.0) 12/04/18 06:00 Lymph % (Auto) 18.3 % (20.0-40.0) L 12/04/18 06:00 Atkinson % (Auto) 5.9 % (0.0-10.0) 12/04/18 06:00 Eos % (Auto) 2.6 % (0.0-4.0) 12/04/18 06:00 Baso % (Auto) 0.7 % (0.0-2.0) 12/04/18 06:00 Neut # (Auto) 6.4 K/uL (1.8-7.0) 12/04/18 06:00 Lymph # (Auto) 1.6 K/uL (1.0-4.3) 12/04/18 06:00 Atkinson # (Auto) 0.5 K/uL (0.0-0.8) 12/04/18 06:00 Eos # (Auto) 0.2 K/uL (0.0-0.7) 12/04/18 06:00 Baso # (Auto) 0.1 K/uL (0.0-0.2) 12/04/18 06:00 PT 10.0 SECONDS (9.7-12.2) 12/03/18 17:16 INR 0.9 12/03/18 17:16 APTT 32 SECONDS (21-34) 12/03/18 17:16 Sodium 133 mmol/L (132-148) 12/04/18 06:00 Potassium 3.5 mmol/L (3.6-5.2) L 12/04/18 06:00 Chloride 108 mmol/L (98-107) H 12/04/18 06:00 Carbon Dioxide 24 mmol/L (22-30) 12/04/18 06:00 Anion Gap 4 (10-20) L 12/04/18 06:00 BUN 6 mg/dL (7-17) L 12/04/18 06:00 Creatinine 0.6 mg/dL (0.7-1.2) L 12/04/18 06:00 Est GFR ( Amer) > 60 12/04/18 06:00 Est GFR (Non-Af Amer) > 60 12/04/18 06:00 Random Glucose 81 mg/dL (65-105) 12/04/18 06:00 Calcium 7.3 mg/dl (8.6-10.4) L 12/04/18 06:00 Phosphorus 2.9 mg/dL (2.5-4.5) 12/04/18 06:00 Magnesium 2.0 mg/dL (1.6-2.3) 12/04/18 06:00 Total Bilirubin 0.6 mg/dL (0.2-1.3) 12/04/18 06:00 AST 22 U/L (14-36) 12/04/18 06:00 ALT 13 U/L (9-52) 12/04/18 06:00 Alkaline Phosphatase 52 U/L (38-126) 12/04/18 06:00 Total Protein 4.5 g/dL (6.3-8.3) L 12/04/18 06:00 Albumin 2.4 g/dL (3.5-5.0) L D 12/04/18 06:00 Globulin 2.1 gm/dL (2.2-3.9) L 12/04/18 06:00 Albumin/Globulin Ratio 1.2 (1.0-2.1) 12/04/18 06:00 Beta HCG, Quant > 95165.00 mIU/ML 12/03/18 17:16 Blood Type O POSITIVE 12/03/18 17:16 Antibody Screen Negative 12/03/18 17:16 - Hospital Course Hospital Course: Patient admitted for emergent D&C for uterine evacuation secondary to incomplete inevitable with hemorrhage and resultant symptomatic acute blood anemia. Same performed without incident. Patient received 2 units PRBCs, with appropriate response. Mild hypokalemia noted; same repleted. Patient discharged home in stable condition on iron supplementation. To follow up with private Emt B in 1 week. - Date & Time of H&P Date of H&P: 12/03/18 Time of H&P: 17:26 Discharge Exam - Head Exam Head Exam: ATRAUMATIC, NORMAL INSPECTION, NORMOCEPHALIC - Eye Exam Eye Exam: Normal appearance - ENT Exam ENT Exam: Mucous Membranes Moist - Neck Exam Neck exam: Full Rom - Respiratory Exam Respiratory Exam: NORMAL BREATHING PATTERN - GI/Abdominal Exam GI & Abdominal Exam: Normal Bowel Sounds, Soft, Unremarkable - Exam Additional comments: Bimanual exam: deferred. Inspection of sanitary napkin noted for minimal spotting - Back Exam Back exam: NORMAL INSPECTION - Neurological Exam Neurological exam: Alert, Oriented x3 - Skin Skin Exam: Dry, Intact, Normal Color, Warm Discharge Plan - Discharge Medications Prescriptions: Ferrous Gluconate 324 mg PO TID #30 tablet - Follow Up Plan Condition: FAIR Disposition: HOME/ ROUTINE Instructions: Hypertension (DC), Hypertension (GEN)
== END 2018-12-04 14:55 | disposition home or self-care (01) | DRG 770 ==
LOC: C.ER 16:41 → C.SDS 17:39 → C.9I 21:15
PROVIDERS: ADMIT Obstetrics & Gynecology; ATTEND Obstetrics & Gynecology
PROC: 30233N1 Transfusion of Nonautologous Red Blood Cells into Peripheral Vein, Percutaneous Approach (ICD-10-PCS; 2018-12-03)
PROC: 10D17ZZ Extraction of Products of Conception, Retained, Via Natural or Artificial Opening (ICD-10-PCS; principal; 2018-12-03 18:30)
DX: O03.1 Delayed or excessive hemorrhage following incomplete spontaneous abortion (principal); D62 Acute posthemorrhagic anemia; O03.89 Complete or unspecified spontaneous abortion with other complications; E78.00 Pure hypercholesterolemia, unspecified; E03.9 Hypothyroidism, unspecified; E87.6 Hypokalemia

== ENCOUNTER 2018-12-19 07:36 | Outpatient (CLI) | payer OTHER | END 2018-12-19 07:37 | disposition home or self-care (01) | LOC: C.LAB 07:36 ==